=== PATIENT | female | born 1945 | race Caucasian/White ===

== ENCOUNTER → 2019-04-05 11:12 | Outpatient (CLI) | payer OTHER, SELFPAY ==
--- NOTE | ~2019-04-05 | MM_ITS ---
EXAMINATION: MM screening oswald BI w schuyler HISTORY: Screening mammogram TECHNIQUE: Craniocaudal and mediolateral oblique 3-D tomosynthesis images were obtained and synthetic 2-D images were generated. CAD analysis was submitted and interpreted. COMPARISON: Comparison to multiple prior studies sequentially, with oldest reviewed study dated 12/12. BREAST PARENCHYMAL COMPOSITION: Breast composed of scattered areas of fibroglandular density FINDINGS: There is no evidence of suspicious mass, calcification, or architectural distortion to sugg est malignancy in either breast. There has been no suspicious interval change. IMPRESSION: 1. No mammographic evidence of malignancy. 2. Recommend routine screening mammography in one year. BI-RADS Category 1: Negative Reviewed, dictated and finalized at location A. IFF DETECTIVE
== END ==
PROVIDERS: PCP Family Medicine; Visit Provider Obstetrics & Gynecology Gynecology
DX: Z12.31 Encounter for screening mammogram for malignant neoplasm of breast (principal)
CPT/HCPCS: 77063; 77067

== ENCOUNTER → 2020-05-18 10:42 | Outpatient (CLI) | payer OTHER, SELFPAY ==
--- NOTE | ~2020-05-18 | US_ITS ---
EXAMINATION: US soft tissue head and neck DATE: 05/18/2020 11:02 INDICATION: Localized swelling, mass and lump at the right lateral neck. TECHNIQUE: Multiple grayscale and Doppler ultrasound images of the region of concern at the lateral r ight neck were obtained. COMPARISON: None FINDINGS: Unremarkable appearance to the subcutaneous fat, underlying musculature and visualized inferior right parotid gland at the region of concern. Also seen are a few normal-sized right jugular chain lymph n odes. No pathologically enlarged lymphadenopathy, abnormal masses or fluid collections identified. IMPRESSION: 1. Unremarkable ultrasound of the lateral right neck with no correlate identified for the reported lo calized swelling, mass or lump. Reviewed, dictated and finalized at location B. IMPRESSION: 1. Unremarkable ultrasound of the lateral right neck with no correlate identifi ed for the reported localized swelling, mass or lump.
== END ==
PROVIDERS: PCP Physician Assistant; Visit Provider Physician Assistant
DX: R22.1 Localized swelling, mass and lump, neck (principal)
CPT/HCPCS: 76536

== ENCOUNTER 2020-12-04 02:28 | Day surgery (SDC) | payer OTHER, SELFPAY ==
[2020-11-21 08:55] VITALS: BMI 34.7
[2020-12-04 08:14] VITALS: BP 151/85; PULSE 92; RESP 18; TEMP 37.2; O2SAT 96
--- NOTE | 2020-12-04 08:29 | WPDGICN ---
Assessment and Plan Assessment and plan (1) Family history of colonic polyps: Code(s): Z83.71 - Family history of colonic polyps Status: Acute Assessment and Plan: Patient's daughter has had colon polyps. For this reason surveillance colonoscopy is recommended every 5-7 years. GI Consult Note Consult date/time: 12/04/20 08:29 HPI: Yareli Tripp is a 75 year old female Presents for screening colonoscopy. Patient reports that her current weight appetite and bowel movements are normal. She denies abdominal pain. She has had no bleeding. Family history is significant that her daughter was identified as having colon polyps. Patient presents for neoplasia screening colonoscopy today. Her last colonoscopy was 7 years ago. Review of Systems Review of Systems: All systems reviewed & are unremarkable except as noted in HPI and below PMFSH Past Medical History Medical History Anxiety Dystonia Normal colonoscopy (~2012) Surgical History Surgical History H/O: hysterectomy (~2001) Family History Family History Sibling Hypertension Family history of malignant neoplasm of ovary Father Family history of cardiovascular disease Cerebrovascular accident Hypertension Mother Family history of cardiovascular disease Family history of osteoporosis Hypertension Family history of coronary artery disease Family history of atrial fibrillation Family history of congestive heart failure Social History Social History Smoking status: Never smoker Second hand tobacco smoke exposure: No Smoking end date: 02/10/1965 Alcohol intake: current Drinks per week: 1 Living arrangements: alone Spiritual care concerns: No Meds Home Medications and Allergies Home Medications Medication Instructions Recorded Confirmed Type calcium carbonate 500 mg calcium 500 mg PO DAILY 05/10/20 11/21/20 History (1,250 mg) tablet cholecalciferol (vitamin D3) 100 100 mcg PO DAILY 05/10/20 11/21/20 History mcg (4,000 unit) capsule magnesium 30 mg tablet 30 mg PO DAILY 05/10/20 11/21/20 History mecobalamin (vitamin B12) 1,000 1,000 mcg SUBLINGUAL DAILY 05/10/20 11/21/20 History mcg disintegrating tablet,sublingual vitamin B complex 1 cap PO DAILY 05/10/20 11/21/20 History alprazolam 0.25 mg tablet 0.25 mg PO TID PRN #60 tablet 05/11/20 11/21/20 Rx Allergies Allergy/AdvReac Type Severity Reaction Status Date / Time DECONGESTANT AdvReac Unknown INCREASES Uncoded 12/04/20 08:13 HEART RATE STEROIDS AdvReac Unknown INCREASES Uncoded 12/04/20 08:13 HEART RATE Vital Signs Vital Signs - 24 hr 12/04/20 08:14 Temperature 99 F Pulse Rate 92 Respiratory Rate 18 Blood Pressure 151/85 H Pulse Oximetry 96 Exam Narrative: Physical exam reveals patient to be alert. Vital signs stable. HEENT exam is unremarkable. Patient is anicteric. Lungs are clear to auscultation and percussion. Heart is without murmur or extra sounds. Abdominal exam bowel sounds are present soft nontender with no organomegaly. Digital external rectal exam is normal.
[2020-12-04] MEDS: LACTATED RINGERS 1,000 ML 150 ML IV CONT (08:30)
--- NOTE | 2020-12-04 08:57 | WPDANESEPPF ---
Anes - Initial Pre Proc Eval Procedure: Operation Date: 12/04/20 09:00 Proposed Procedures p Screening Colonoscopy - Ryan Foss MD Date/Time: 12/04/20 08:57 Surgeon: Ryan Foss MD Pre Op Diagnosis: family hx of colon polyps Patient Data Age: 75 Gender: F Height: 1.6 m Weight: 84.7 kg Last Vital Signs Temp 99 F 12/04/20 08:14 Pulse 92 12/04/20 08:14 Resp 18 12/04/20 08:14 BP 151/85 H 12/04/20 08:14 Pulse Ox 96 12/04/20 08:14 Allergies Allergy/AdvReac Type Severity Reaction Status Date / Time DECONGESTANT AdvReac Unknown INCREASES Uncoded 12/04/20 08:13 HEART RATE STEROIDS AdvReac Unknown INCREASES Uncoded 12/04/20 08:13 HEART RATE Home Medications Medication Instructions Recorded Confirmed Type calcium carbonate 500 mg calcium 500 mg PO DAILY 05/10/20 11/21/20 History (1,250 mg) tablet cholecalciferol (vitamin D3) 100 100 mcg PO DAILY 05/10/20 11/21/20 History mcg (4,000 unit) capsule magnesium 30 mg tablet 30 mg PO DAILY 05/10/20 11/21/20 History mecobalamin (vitamin B12) 1,000 1,000 mcg SUBLINGUAL DAILY 05/10/20 11/21/20 History mcg disintegrating tablet,sublingual vitamin B complex 1 cap PO DAILY 05/10/20 11/21/20 History alprazolam 0.25 mg tablet 0.25 mg PO TID PRN #60 tablet 05/11/20 11/21/20 Rx Patient hx anesthesia problems: none Family hx anesthesia problems: none Results Review: All pre-operative results and documents have been reviewed as part of the pre-operative evaluation. [facility] Past Medical History Medical History Anxiety Dystonia Normal colonoscopy (~2012) Surgical History Surgical History H/O: hysterectomy (~2001) Family History Family History Sibling Hypertension Family history of malignant neoplasm of ovary Father Family history of cardiovascular disease Cerebrovascular accident Hypertension Mother Family history of cardiovascular disease Family history of osteoporosis Hypertension Family history of coronary artery disease Family history of atrial fibrillation Family history of congestive heart failure Social History Social History Smoking status: Never smoker Second hand tobacco smoke exposure: No Smoking end date: 02/10/1965 Alcohol intake: current Drinks per week: 1 Living arrangements: alone Spiritual care concerns: No Anes - Eval Final PreProcedure Day of Procedure 12/04/20 08:57 Patient weight: overweight Heart: regular rate and rhythm Airway: Mallampati scale class II Neurological: alert and oriented Last oral intake: >/= 8 hours ASA classification: III Emergent: no Anesthetic plan: proceed Anesthesia type and monitoring: general GIVS and standard monitoring Results Review: All pre-operative results and documents have been reviewed as part of the pre-operative evaluation. Informed Consent: The patient's anesthetic plan and its attendant risks and benefits were discussed with the patient/family/POA. Questions were solicited and answers provided to the satisfaction of the patient/family/POA.
[2020-12-04 09:26] VITALS: BP 138/87; PULSE 84; RESP 30; O2SAT 98
[2020-12-04 09:36] VITALS: BP 138/91; PULSE 86; RESP 32; O2SAT 98
[2020-12-04 09:46] VITALS: BP 158/87; PULSE 72; RESP 13; O2SAT 97
== END 2020-12-04 09:56 | disposition home or self-care (01) ==
PROVIDERS: PCP Family Medicine; Visit Provider Internal Medicine Gastroenterology
PROC: 0DJD8ZZ Inspection of Lower Intestinal Tract, Via Natural or Artificial Opening Endoscopic (ICD-10-PCS; CPT 45378; principal; 2020-12-04 09:00)
DX: Z12.11 Encounter for screening for malignant neoplasm of colon (principal); K64.8 Other hemorrhoids; K57.30 Diverticulosis of large intestine without perforation or abscess without bleeding; F41.9 Anxiety disorder, unspecified; G24.9 Dystonia, unspecified
CPT/HCPCS: 45378; J2704; J7120

== ENCOUNTER → 2021-01-11 12:23 | Outpatient (CLI) | payer OTHER, SELFPAY ==
--- NOTE | ~2021-01-11 | MM_ITS ---
EXAMINATION: MM screening oswald BI w schuyler HISTORY: Screening mammogram TECHNIQUE: Craniocaudal and mediolateral oblique 3-D tomosynthesis images were obtained and synthetic 2-D images were generated. CAD analysis was submitted and interpreted. COMPARISON: 04/01/2019, 02/23/2018 bilateral screening mammogram examinations BREAST PARENCHYMAL COMPOSITION: There are scattered areas of fibroglandular density. FINDINGS: There is no evidence of suspicious mass, calcification, or architectural distortion to sugg est malignancy in either breast. There has been no suspicious interval change. IMPRESSION: 1. No mammographic evidence of malignancy. 2. Recommend routine screening mammography in one year. BI-RADS Category 1: Negative Reviewed, dictated and finalized at location A. [employer]
== END ==
PROVIDERS: Visit Provider Obstetrics & Gynecology Gynecology
DX: Z12.31 Encounter for screening mammogram for malignant neoplasm of breast (principal)
CPT/HCPCS: 77063; 77067

== ENCOUNTER → 2021-03-27 11:04 | Outpatient (CLI) | payer OTHER, SELFPAY ==
--- NOTE | ~2021-03-27 | DEXA_ITS ---
Bone Density Report Name: ELADIA SHEPARD Age: 75 Sex: Female Ethnicity: White Date of : 1945 Indication: postmenopausal; screening for osteoporosis; parental hip fracture; height loss; hysterectomy; Referring Provider: HENNA KIM Study: Bone densitometry was performed. Exam Date: March 27, 2021 Accession number: [id number] Bone Density: Region BMD T-score Z-score Classification AP Spine (L1-L4) 1.207 1.5 3.9 Normal Femoral Neck (Left) 0.678 -1.5 0.5 Osteopenia Total Hip (Left) 0.843 -0.8 1.0 Normal Femoral Neck (Right) 0.685 -1.5 0.6 Osteopenia Total Hip (Right) 0.878 -0.5 1.3 Normal Total Hip Mean 0.861 -0.7 1.2 Normal World Health Organization criteria for BMD impression classify patients as: Normal (T-score at or above -1.0), Osteopenia (T-score between -1.0 and -2.5), or Osteoporosis (T-score at or below -2.5). 10-year Fracture Risk(1): Major Osteoporotic Fracture 17% Hip Fracture 8.5% Reported Risk Factors: [place] (), Neck BMD=0.678, BMI=33.9, parental fracture (1) FRAX(R) Version 3.08. Fracture probability calculated for an untreated patient. Fracture probability may be lower if the patient has received treatment. Previous Exams: Region Exam Age BMD T-score BMD Change BMD Change Date g/cm2 vs Baseline vs Previous AP Spine(L1-L4) 03/27/2021 75 1.207 1.5 0.003 0.029 02/11/2017 71 1.178 1.2 -0.026 -0.026 12/16/2013 68 1.205 1.4 0.000 0.000 10/03/2010 65 1.205 1.4 0.001 0.032* 09/24/2006 61 1.173 1.1 -0.031 -0.031 07/29/2003 58 1.204 1.4 Total Hip(Left) 03/27/2021 75 0.843 -0.8 -0.183 -0.051 02/11/2017 71 0.895 -0.4 -0.132 0.004 12/16/2013 68 0.890 -0.4 -0.136 -0.023 10/03/2010 65 0.913 -0.2 -0.114 -0.054* 09/24/2006 61 0.967 0.2 -0.059 -0.059 07/29/2003 58 1.027 0.7 Total Hip(Right) 03/27/2021 75 0.878 -0.5 -0.093 -0.043 02/11/2017 71 0.921 -0.2 -0.050 0.001 12/16/2013 68 0.920 -0.2 -0.051 0.024 10/03/2010 65 0.896 -0.4 -0.075 -0.069* 09/24/2006 61 0.965 0.2 -0.006 -0.006 07/29/2003 58 0.971 0.2 *Denotes significance at 95% confidence level, LSC for AP Spine = 0.022 g/cm2, LSC for Total Hip = 0.027 g/cm2 Clinical Information Provided by Patient:
== END ==
PROVIDERS: Visit Provider Obstetrics & Gynecology Gynecology
DX: Z78.0 Asymptomatic menopausal state (principal); M85.852 Other specified disorders of bone density and structure, left thigh; M85.851 Other specified disorders of bone density and structure, right thigh
CPT/HCPCS: 77080

== ENCOUNTER 2022-07-19 14:15 | Outpatient (CLI) | payer OTHER, SELFPAY ==
--- NOTE | ~2022-07-19 | XR_ITS ---
XR knee RT 3V DATE: 07/19/2022 14:52 INDICATION: Chronic knee pain TECHNIQUE: AP, lateral, sunrise views COMPARISON: None FINDINGS: Mild suprapatellar knee joint effusion. Osteopenia. Superior pole patellar enthesopathy at the quadriceps tendon insertion. There is mild enthesopathy of the patella at the patellar tendon insertion site. Moderately severe loss of medial compartment joint space height with periarticular spurring. There is mild particular spurring at the medial compartment and to a greater extent patellofemoral compartmen t. No fracture or dislocation, periosteal reaction or bone destruction, radiopaque intra-articular loose body or, calcinosis. 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
--- NOTE | ~2022-07-19 | XR_ITS ---
XR knee LT 3V DATE: 07/19/2022 14:52 INDICATION: Chronic knee pain TECHNIQUE: AP, lateral, sunrise views COMPARISON: 10/20/2018 left knee FINDINGS: Superior pole patellar enthesopathy at quadriceps tendon insertion. Prominent particular spurring of the patellofemoral joint. There is severe narrowing at the lateral c ompartment joint space. There is periarticular spurring of the lateral and medial compartments. Osteopenia No fracture or dislocation or joint effusion. No radiopaque intra-articular loose body or chondrocalc inosis is evident. No periosteal reaction or bone destruction. 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
--- NOTE | ~2022-07-19 | XR_ITS ---
XR chest 2V DATE: 07/19/2022 14:52 INDICATION: Shortness of breath TECHNIQUE: PA and lateral views COMPARISON: None FINDINGS: Normal heart size. Mild aortic calcification and tortuosity. There is an air-fluid level wi thin a moderate-sized hiatal hernia. No hilar or mediastinal enlargement. No pulmonary infiltrate or consolidation, pleural effusion or pu lmonary vascular congestion or pneumothorax. Diffuse idiopathic skeletal hyperostosis of the thoracic spine. Mild thoracic dextroscoliosis. IMPRESSION: No active cardiac pulmonary disease Moderate size hiatal hernia Reviewed, dictated and finalized at location []
--- NOTE | 2022-07-19 14:25 | ECG_ITS ---
Measurements Intervals [place] Rate: 83 P: 40 MA: 164 QRS: -20 QRSD: 86 T: 64 QT: 352 QTc: 414 Interpretive Statements SINUS RHYTHM NO PREVIOUS ECG AVAILABLE FOR COMPARISON Electronically Signed On 07-20-2022 8:57:24 CDT by Angela Hicks M.D.
== END 2022-07-19 14:16 | disposition home or self-care (01) ==
PROVIDERS: PCP Family Medicine; Visit Provider Physician Assistant
DX: R06.02 Shortness of breath (principal); M25.461 Effusion, right knee; M85.861 Other specified disorders of bone density and structure, right lower leg; M17.0 Bilateral primary osteoarthritis of knee; M85.862 Other specified disorders of bone density and structure, left lower leg; K44.9 Diaphragmatic hernia without obstruction or gangrene
CPT/HCPCS: 71046; 73562; 93005

== ENCOUNTER 2022-07-25 09:22 | Outpatient (CLI) | payer OTHER, SELFPAY ==
[2022-07-25 09:45] LABS: Hematocrit 40.6 % (37.0-47.0); Hemoglobin 12.6 g/dL (12.0-15.0); Mean Corpuscular Hemoglobin 26.7 pg (26-34); Mean Platelet Volume 10.6 fl (7.4-10.4); Platelet Count Result 247 k/mm3 (150-375); Red Blood Count 4.72 M/mm3 (4.2-5.4); Red Cell Distribution Width 15.3 % (11.5-14.5); White Blood Count 6.5 K/mm3 (4.5-10.0)
[2022-07-25 09:59] LABS: Alanine Aminotransferase 21 U/L (6-35); Albumin Level 3.9 g/dL (3.5-5.1); Alkaline Phosphatase 71 U/L (38-126); Anion Gap 4 mmol/L (8-16); Aspartate Amino Transferase 30 U/L (14-36); Bilirubin,Total 0.7 mg/dL (0.2-1.3); Blood Urea Nitrogen 15 mg/dL (7-17); Calcium 8.6 mg/dL (8.4-10.2); Carbon Dioxide 28 mmol/L (22-30); Chloride 108 mmol/L (98-107); Cholesterol 203 mg/dL (0-200); Estimated Glomerular Filt Rate > 60; Glucose 93 mg/dL (65-110); HDL Direct 63 mg/dL; Potassium 4.1 mmol/L (3.4-5.0); Sodium 140 mmol/L (137-145); Triglycerides 133 mg/dL (<150)
[2022-07-25 10:10] LABS: LDL Cholesterol Direct 106 mg/dL
[2022-07-25 10:35] LABS: Free T4 Free Thyroxine 1.35 ng/mL (0.78-2.19)
== END 2022-07-25 09:23 | disposition home or self-care (01) ==
PROVIDERS: PCP Family Medicine; Visit Provider Physician Assistant
DX: R53.83 Other fatigue (principal); Z13.1 Encounter for screening for diabetes mellitus; Z13.220 Encounter for screening for lipoid disorders
CPT/HCPCS: 36415; 80053; 80061; 84439; 84443; 85027

== ENCOUNTER 2023-09-02 14:22 | Outpatient (CLI) | payer OTHER, SELFPAY ==
[2023-09-02 14:57] LABS: Basophils Absolute Auto 0.1 K/mm3 (0.0-0.1); Basophils Percent Auto 0.6 % (0.2-1.2); Eosinophils Absolute Auto 0.5 K/mm3 (0-0.3); Eosinophils Percent Auto 6.2 % (0-4.4); Hematocrit 40.2 % (37.0-47.0); Hemoglobin 12.7 g/dL (12.0-15.0); Immature Granulocyte Absolute 0.02 K/mm3 (0.00-0.031); Immature Granulocyte Percent A 0.2 % (0-0.5); Lymphocytes Absolute Auto 1.62 K/mm3 (0.9-3.2); Lymphocytes Percent Auto 19.3 % (18.3-44.2); Mean Corpuscular HGB Conc 31.6 g/dl (32-36); Mean Corpuscular Hemoglobin 26.8 pg (26-34); Mean Corpuscular Volume 84.8 fl (80-100); Mean Platelet Volume 10.7 fl (7.4-10.4); Monocytes Absolute Auto 0.9 K/mm3 (0.1-0.6); Monocytes Percent Auto 10.3 % (2.6-8.5); Neutrophils Absolute Auto 5.3 K/mm3 (1.3-6.7); Neutrophils Percent Auto 63.4 % (45.5-73.1); Platelet Count Result 252 k/mm3 (150-375); Red Blood Count 4.74 M/mm3 (4.2-5.4); White Blood Count 8.4 K/mm3 (4.5-10.0)
--- NOTE | 2023-09-02 15:03 | ECG_ITS ---
Test Date: 2023-09-02 15:15:08 Measurements Intervals [place] Rate: 82 P: 42 W[place]: 157 QRS: 20 QRSD: 82 T: 62 QT: 360 QTc: 422 Interpretive Statements SINUS RHYTHM RSR' IN V1 OR V2, PROBABLY NORMAL VARIANT NORMAL ECG No previous ECG available for comparison Electronically Signed On 09-02-2023 15:57:55 CDT by Sanjiv Tolbert D.O.
[2023-09-02 15:10] LABS: Anion Gap 8 mmol/L (4-12); Blood Urea Nitrogen 23 mg/dL (7-17); Calcium 9.1 mg/dL (8.4-10.2); Carbon Dioxide 26 mmol/L (22-30); Chloride 102 mmol/L (98-107); Estimated Glomerular Filt Rate > 60; Glucose 111 mg/dL (65-110); Sodium 136 mmol/L (137-145)
[2023-09-02 16:05] LABS: Appearance Urine Clear (Clear); Bacteria Urine None Seen /hpf; Bilirubin Urine Negative (Negative); Blood Urine Negative (Negative); Color Urine Dark Yellow (Yellow); Glucose Urine UA Negative (Negative); Ketones Urine Trace mg/dL (Negative); Leukocyte Esterase Ur 2+ LEU/UL (Negative); Need Manual Microscopic Reviewed; Nitrate Urine Negative (Negative); Protein Urine Negative (Negative); RBC Urine 0-2 /hpf (0-2); Specific Grav Ur 1.021 (1.001-1.035); Squamous Epithelial Cell Urine Occasional /hpf (Few); Urobilinogen Urine 0.2 mg/dL (<2.0); pH Urine 5.5 (5.0-9.0)
[2023-09-02 16:08] LABS: Add Urine Microscopic? YES
== END 2023-09-02 14:23 | disposition home or self-care (01) ==
PROVIDERS: PCP Family Medicine; Visit Provider Nurse Practitioner Family
DX: R53.83 Other fatigue (principal); I10 Essential (primary) hypertension
CPT/HCPCS: 36415; 80048; 81001; 85025; 87086; 93005

== ENCOUNTER 2024-01-14 13:32 | Outpatient (CLI) | payer OTHER, SELFPAY ==
[2024-01-14 16:04] LABS: Basophils Absolute Auto 0.1 K/mm3 (0.0-0.1); Basophils Percent Auto 0.9 % (0.2-1.2); Eosinophils Absolute Auto 0.2 K/mm3 (0-0.3); Eosinophils Percent Auto 2.5 % (0-4.4); Hematocrit 43.8 % (37.0-47.0); Hemoglobin 13.8 g/dL (12.0-15.0); Immature Granulocyte Absolute 0.02 K/mm3 (0.00-0.031); Immature Granulocyte Percent A 0.3 % (0-0.5); Lymphocytes Absolute Auto 1.45 K/mm3 (0.9-3.2); Lymphocytes Percent Auto 18.9 % (18.3-44.2); Mean Corpuscular HGB Conc 31.5 g/dl (32-36); Mean Corpuscular Hemoglobin 28.4 pg (26-34); Mean Corpuscular Volume 90.1 fl (80-100); Mean Platelet Volume 10.6 fl (7.4-10.4); Monocytes Absolute Auto 0.7 K/mm3 (0.1-0.6); Monocytes Percent Auto 9.1 % (2.6-8.5); Neutrophils Absolute Auto 5.3 K/mm3 (1.3-6.7); Neutrophils Percent Auto 68.3 % (45.5-73.1); Platelet Count Result 219 k/mm3 (150-375); Red Blood Count 4.86 M/mm3 (4.2-5.4); Red Cell Distribution Width 14.7 % (11.5-14.5); White Blood Count 7.7 K/mm3 (4.5-10.0)
[2024-01-14 16:07] LABS: Add Urine Microscopic? NO; Appearance Urine Clear (Clear); Bilirubin Urine Negative (Negative); Blood Urine Negative (Negative); Color Urine Yellow (Yellow); Glucose Urine UA Negative (Negative); Ketones Urine Negative (Negative); Leukocyte Esterase Ur Negative LEU/UL (Negative); Nitrate Urine Negative (Negative); Protein Urine Negative (Negative); Specific Grav Ur 1.018 (1.001-1.035); Urobilinogen Urine 0.2 mg/dL (<2.0); pH Urine 6.5 (5.0-9.0)
[2024-01-14 16:16] LABS: Albumin Level 4.3 g/dL (3.5-5.1); Anion Gap 2 mmol/L (4-12); Blood Urea Nitrogen 21 mg/dL (7-17); Calcium 9.2 mg/dL (8.4-10.2); Carbon Dioxide 29 mmol/L (22-30); Chloride 106 mmol/L (98-107); Estimated Glomerular Filt Rate > 60; Glucose 91 mg/dL (65-110); Potassium 4.4 mmol/L (3.4-5.0); Sodium 137 mmol/L (137-145)
[2024-01-14 16:19] LABS: Urine Cotinine NEGATIVE
[2024-01-14 16:22] LABS: INR 0.9; Prothrombin Time 12.9 Seconds (11.1-14.7)
[2024-01-14 16:23] LABS: Partial Thromboplastin Time 24.6 Seconds (22.3-36.8)
[2024-01-14 17:29] LABS: MRSA (PCR) NOT DETECTED (NOT DETECTE)
[2024-01-14 23:31] LABS: Hemoglobin A1C 5.8 % (<5.7)
== END 2024-01-14 13:33 | disposition home or self-care (01) ==
LOC: ANHSURGERY 13:37
PROVIDERS: PCP Family Medicine; Visit Provider Orthopaedic Surgery
DX: M17.12 Unilateral primary osteoarthritis, left knee (principal); Z01.818 Encounter for other preprocedural examination
CPT/HCPCS: 80048; 80307; 81003; 82040; 83036; 85025; 85610; 85730; 87641

== ENCOUNTER 2024-01-15 11:46 | Emergency (ER) | payer OTHER, SELFPAY ==
[2024-01-15] VITALS (15 sets, daily range): BP systolic 164–206; BP diastolic 83–93; PULSE 75–87; RESP 12–20; TEMP 36.5; O2SAT 95–100
--- NOTE | 2024-01-15 13:20 | ED_ITS ---
HPI - Recheck/Abnormal Lab/Rx General Chief Complaint: Recheck/Abnormal Lab/Rx Stated Complaint: high BP Time Seen by Provider: 01/15/24 13:21 Focused HPI: Patient is a 78 y/o female who presents to the ED with c/o HTN. Patient reports she had a preop appointment yesterday for L knee replacement surgery scheduled on 01/[address] Jacob. BP was noted to be elevated at the appointment. Elevated to 230 systolic. Primary called her today to come to the ED. Patient reports she has not checked her BP in over 1 month. States she was on a diuretic years ago for HTN, but was taken off this after losing weight. Patient is currently on amoxicillin for sinus infection. She has also been taking Pseudafed for congestion. Denies dizziness, lightheadedness, vision changes, headache, CP, SOB. GENERAL: Elderly, mildly anxious appearing, obese with BMI of 36.3, and in no acute distress. HEAD: Normocephalic, atraumatic. CHEST: Clear to auscultation. ?No respiratory distress. HEART: Regular rate and rhythm.? NEURO: ?Alert and oriented x3. Patient screened in triage and initial orders placed.? ?Additional care and disposition to be based upon?diagnostic testing and treatment. Source: patient Mode of arrival: ambulatory Limitations: no limitations Related Data Home Medications Medication Instructions Recorded Confirmed mecobalamin (vitamin B12) 1,000 1,000 mcg sublingual DAILY 05/10/20 01/14/24 mcg disintegrating tablet,sublingual vitamin B complex 1 cap PO DAILY 05/10/20 01/14/24 acetaminophen 650 mg 1,300 mg PO Q12H PRN Pain 01/14/24 01/14/24 tablet,extended release amoxicillin 875 mg tablet 875 mg PO Q12H 01/14/24 01/14/24 calcium 500 mg 2 tablet PO BID 01/14/24 01/14/24 (carb,gluconate)-magnesium 250 mg (gluc,oxide) tablet (Calcium Magnesium) cholecalciferol (vitamin D3) 50 50 mcg PO DAILY 01/14/24 01/14/24 mcg (2,000 unit) capsule bdmgmaashj-yvikqrooleeskyu-qranwipcosmgansu-acetaminophen 2 cap PO HS PRN Insomnia 01/14/24 01/14/24 capsule ibuprofen 200 mg capsule 400 mg PO Q6H PRN Pain 01/14/24 01/14/24 loperamide 2 mg capsule 2 mg PO Q6H PRN Pain 01/14/24 01/14/24 pseudoephedrine HCl 60 mg tablet 60 mg PO Q4-6H PRN Sinus Symptoms 01/14/24 01/14/24 Allergies Allergy/AdvReac Type Severity Reaction Status Date / Time DECONGESTANT AdvReac Unknown INCREASES Uncoded 01/15/24 15:41 HEART RATE STEROIDS AdvReac Unknown INCREASES Uncoded 01/15/24 15:41 HEART RATE PMFSH Past Medical History Medical History Anxiety Diarrhea Dystonia Encounter for immunization Fatigue History of Mohs micrographic surgery for skin cancer HTN (hypertension) Knee pain, bilateral Left knee DJD Normal colonoscopy (~2012) Other fatigue Right knee DJD Surgical History Surgical History H/O: hysterectomy (~2001) Family History Family History Sibling Hypertension Family history of malignant neoplasm of ovary Father Family history of cardiovascular disease Cerebrovascular accident Hypertension Mother Family history of cardiovascular disease Family history of osteoporosis Hypertension Family history of coronary artery disease Family history of atrial fibrillation Family history of congestive heart failure Social History Social History Smoking status: Never smoker Second hand tobacco smoke exposure: No Alcohol intake: current Drinks per week: 1 Substance use: never Substance use type: does not use Lack of Transportation: No Lack of Food: Never True Current Housing: I Have Housing Concerned About Future Housing: No Difficulty Paying Gas/Electric Bills: No Difficulty Paying for Meds: No Currently Unemployed: No Education: Bachelor's Degree Difficulty w/ Childcare or Family Care: No Living arrangements: alone Occupation/Education: retired Gender identity (if verbalized by the patient): Female Spiritual care concerns: No Course Vital Signs Vital signs: Vital Signs Temperature 97.7 F 01/15/24 11:54 Pulse Rate 87 01/15/24 11:54 Respiratory Rate 18 01/15/24 11:54 Blood Pressure 206/89 H 01/15/24 11:54 Pulse Oximetry 99 01/15/24 11:54 Temperature 97.7 F 01/15/24 11:54 Pulse Rate 78 01/15/24 19:14 Respiratory Rate 20 01/15/24 19:14 Blood Pressure 189/85 H 01/15/24 19:14 Pulse Oximetry 98 01/15/24 19:14 Oxygen Delivery Room Air 01/15/24 15:42 MDM - Recheck/Abnormal Lab/Rx MDM Narrative Medical decision making narrative: MSE by RONDA in triage. Patient had blood work and UA performed yesterday. Lab Data Labs: Lab Results 01/15/24 Range/Units 17:49 Troponin I < 0.012 (0.000-0.034) ng/mL Discharge Plan Discharge Clinical Impression: HTN (hypertension) Qualifiers: Hypertension type: unspecified Qualified Code(s): I10 - Essential (primary) hypertension Patient Disposition: Home, Self-Care Condition: Stable Instructions: Antibiotic Form, Hypertension (ED) Additional Instructions: You were seen in the emergency department. Your troponin was negative. Your EKG was not concerning for ischemia. Review of your blood work yesterday was not concerning for liver or kidney injury. Your exam is reassuring. I recommend a course of amlodipine and following up with your primary care doctor. If you develop chest pain, shortness of breath, weakness/numbness, change/ loss of vision/hearing, or if you have other emergent concerns for life, limb, or eyesight, return to the emergency department. Patient Language: Croatian Prescriptions: New amlodipine 5 mg tablet 5 mg PO DAILY Qty: 30 0RF No Action mecobalamin (vitamin B12) 1,000 mcg tablet,disintegrating 1,000 mcg sublingual DAILY Rx Instructions: place tablet under tongue and allow to dissolve for at least30 secs before swallowing vitamin B complex Capsule 1 cap PO DAILY ibuprofen 200 mg Capsule 400 mg PO Q6H PRN (Reason: Pain) cholecalciferol (vitamin D3) 50 mcg (2,000 unit) Capsule 50 mcg PO DAILY Calcium Magnesium 500 mg calcium- 250 mg Tablet 2 tablet PO BID acetaminophen [Tylenol Arthritis] 650 mg Tablet Extended Release 1,300 mg PO Q12H PRN (Reason: Pain) amoxicillin 875 mg Tablet 875 mg PO Q12H loperamide [Imodium] 2 mg Capsule 2 mg PO Q6H PRN (Reason: Pain) NyQuil Liquicaps Capsule 2 cap PO HS PRN (Reason: Insomnia) pseudoephedrine HCl [Sudafed] 60 mg Tablet 60 mg PO Q4-6H PRN (Reason: Sinus Symptoms) Rx Instructions: DNExceed 4 doses/24h alprazolam [Xanax] 0.25 mg tablet 0.25 mg PO TID PRN (Reason: anxiety) Qty: 60 0RF chlorhexidine gluconate [Hibiclens] 4 % liquid 1 applic topical ONCE Qty: 237 0RF Rx Instructions: Cleanse operative extremity, in shower, every day for 1 week prior to surgical procedure. Follow-up/Referrals: Seema Waters MD [Primary Care Provider] - 1 Week Time of Disposition: 18:30
--- NOTE | 2024-01-15 13:25 | ECG_ITS ---
Test Date: 2024-01-15 13:43:54 Measurements Intervals [place] Rate: 72 P: 32 [place]: 165 QRS: -17 QRSD: 78 T: 51 QT: 380 QTc: 417 Interpretive Statements SINUS RHYTHM Compared to ECG 09/02/2023 15:15:08 No significant changes Electronically Signed On 01-15-2024 13:59:04 PAIN MANAGEMENT PHYSICIAN by Toy Villatoro M.D.
[2024-01-15] MEDS: amLODIPine BESYLATE 5 MG TABLET PO (17:34)
[2024-01-15 18:22] LABS: Troponin I < 0.012 ng/mL (0.000-0.034)
--- NOTE | 2024-01-15 18:29 | ED_ITS ---
HPI - Recheck/Abnormal Lab/Rx General Chief Complaint: Recheck/Abnormal Lab/Rx Stated Complaint: high BP Time Seen by Provider: 01/15/24 13:21 Source: patient Mode of arrival: ambulatory Limitations: no limitations History of Present Illness HPI narrative: This is a 78-year-old female, with history of anxiety, who presents to the emergency department and recommendation for primary care doctor for elevated blood pressure. The patient states she was seen yesterday for a preop appointment preparation for knee surgery, when she was found to be hypertensive to the 180s. The patient denies any symptoms, including headache, shortness of breath, chest pain, loss of consciousness, weakness / numbness or change in urination. She has no other complaints at this time. Related Data Home Medications Medication Instructions Recorded Confirmed mecobalamin (vitamin B12) 1,000 1,000 mcg sublingual DAILY 05/10/20 01/14/24 mcg disintegrating tablet,sublingual vitamin B complex 1 cap PO DAILY 05/10/20 01/14/24 acetaminophen 650 mg 1,300 mg PO Q12H PRN Pain 01/14/24 01/14/24 tablet,extended release amoxicillin 875 mg tablet 875 mg PO Q12H 01/14/24 01/14/24 calcium 500 mg 2 tablet PO BID 01/14/24 01/14/24 (carb,gluconate)-magnesium 250 mg (gluc,oxide) tablet (Calcium Magnesium) cholecalciferol (vitamin D3) 50 50 mcg PO DAILY 01/14/24 01/14/24 mcg (2,000 unit) capsule wpvvaxpljb-hhvzywgfsiziugz-hcakyhkdswpgasib-acetaminophen 2 cap PO HS PRN Insomnia 01/14/24 01/14/24 capsule ibuprofen 200 mg capsule 400 mg PO Q6H PRN Pain 01/14/24 01/14/24 loperamide 2 mg capsule 2 mg PO Q6H PRN Pain 01/14/24 01/14/24 pseudoephedrine HCl 60 mg tablet 60 mg PO Q4-6H PRN Sinus Symptoms 01/14/24 01/14/24 Allergies Allergy/AdvReac Type Severity Reaction Status Date / Time DECONGESTANT AdvReac Unknown INCREASES Uncoded 01/15/24 15:41 HEART RATE STEROIDS AdvReac Unknown INCREASES Uncoded 01/15/24 15:41 HEART RATE Review of Systems Review of Systems: All systems reviewed & are unremarkable except as noted in HPI and below PMFSH Past Medical History Medical History Anxiety Diarrhea Dystonia Encounter for immunization Fatigue History of Mohs micrographic surgery for skin cancer HTN (hypertension) Knee pain, bilateral Left knee DJD Normal colonoscopy (~2012) Other fatigue Right knee DJD Surgical History Surgical History H/O: hysterectomy (~2001) Family History Family History Sibling Hypertension Family history of malignant neoplasm of ovary Father Family history of cardiovascular disease Cerebrovascular accident Hypertension Mother Family history of cardiovascular disease Family history of osteoporosis Hypertension Family history of coronary artery disease Family history of atrial fibrillation Family history of congestive heart failure Social History Social History Smoking status: Never smoker Second hand tobacco smoke exposure: No Alcohol intake: current Drinks per week: 1 Substance use: never Substance use type: does not use Lack of Transportation: No Lack of Food: Never True Current Housing: I Have Housing Concerned About Future Housing: No Difficulty Paying Gas/Electric Bills: No Difficulty Paying for Meds: No Currently Unemployed: No Education: Bachelor's Degree Difficulty w/ Childcare or Family Care: No Living arrangements: alone Occupation/Education: retired Gender identity (if verbalized by the patient): Female Spiritual care concerns: No Exam Narrative: GENERAL: Well-developed, well-nourished, and in no acute distress. HEAD: Normocephalic, atraumatic. EYES: PERRLA and EOMI. CHEST: Clear to auscultation. No respiratory distress. No wheezes rales or rhonchi HEART: Regular rate and rhythm. No murmur heard. Normal peripheral pulses. ABDOMEN: Soft, nontender, nondistended, normal active bowel sounds. EXTREMITIES: Normal range of motion. No edema. SKIN: Warm, dry, no rash. NEURO: Alert and oriented x3. Strength 5/5 in all extremities, sensation intact bilaterally, no noted ataxia, cranial nerves 2 through 12 intact PSYCH: Normal mood and affect. Course Course Emergency Course: 18:30 - I reviewed the patient's labs obtained yesterday at her preop appointment. CBC is unremarkable. Chemistries all within normal limits. EKG here is not concerning for ischemia. A troponin was negative. The patient's blood pressure spontaneously improved to the 180s over 80s. Will start low-dose amlodipine and recommend primary care follow-up. I discussed the findings and recommendations with The patient. Discussed return and emergency precautions including signs/symptoms of ACS, respiratory distress and stroke. The patient voiced understanding and agreement with the plan. All questions answered to her satisfaction. Vital Signs Vital signs: Vital Signs Temperature 97.7 F 01/15/24 11:54 Pulse Rate 87 01/15/24 11:54 Respiratory Rate 18 01/15/24 11:54 Blood Pressure 206/89 H 01/15/24 11:54 Pulse Oximetry 99 01/15/24 11:54 Temperature 97.7 F 01/15/24 11:54 Pulse Rate 78 01/15/24 19:14 Respiratory Rate 20 01/15/24 19:14 Blood Pressure 189/85 H 01/15/24 19:14 Pulse Oximetry 98 01/15/24 19:14 Oxygen Delivery Room Air 01/15/24 15:42 MDM - Recheck/Abnormal Lab/Rx MDM Narrative Medical decision making narrative: plan: EKG, troponin, review of recent labs, antihypertensives, reassess Differential Diagnosis Differential diagnosis: Likely other ( hypertension, metabolic abnormality, ACS, other) Lab Data Labs: Lab Results 01/15/24 Range/Units 17:49 Troponin I < 0.012 (0.000-0.034) ng/mL ECG Data EKG #1: Attestation: I personally reviewed and interpreted this ECG as follows: ECG completion date: 01/15/24 ECG completion time: 13:43 Prior ECG tracings: available for review Interpretation: sinus rhythm, rate 72, borderline left axis, no ST segment elevations or T-wave inversions concerning for ischemia, normal intervals with QTC of 417. Compared to EKG done in August 2023, there are no significant changes. Discharge Plan Discharge Clinical Impression: HTN (hypertension) Qualifiers: Hypertension type: unspecified Qualified Code(s): I10 - Essential (primary) hypertension Patient Disposition: Home, Self-Care Condition: Stable Instructions: Antibiotic Form, Hypertension (ED) Additional Instructions: You were seen in the emergency department. Your troponin was negative. Your EKG was not concerning for ischemia. Review of your blood work yesterday was not concerning for liver or kidney injury. Your exam is reassuring. I recommend a course of amlodipine and following up with your primary care doctor. If you d evelop chest pain, shortness of breath, weakness/numbness, change/ loss of vision/hearing, or if you have other emergent concerns for life, limb, or eyesight, return to the emergency department. Patient Language: Swedish Prescriptions: New amlodipine 5 mg tablet 5 mg PO DAILY Qty: 30 0RF No Action mecobalamin (vitamin B12) 1,000 mcg tablet,disintegrating 1,000 mcg sublingual DAILY Rx Instructions: place tablet under tongue and allow to dissolve for at least30 secs before swallowing vitamin B complex Capsule 1 cap PO DAILY ibuprofen 200 mg Capsule 400 mg PO Q6H PRN (Reason: Pain) cholecalciferol (vitamin D3) 50 mcg (2,000 unit) Capsule 50 mcg PO DAILY Calcium Magnesium 500 mg calcium- 250 mg Tablet 2 tablet PO BID acetaminophen [Tylenol Arthritis] 650 mg Tablet Extended Release 1,300 mg PO Q12H PRN (Reason: Pain) amoxicillin 875 mg Tablet 875 mg PO Q12H loperamide [Imodium] 2 mg Capsule 2 mg PO Q6H PRN (Reason: Pain) NyQuil Liquicaps Capsule 2 cap PO HS PRN (Reason: Insomnia) pseudoephedrine HCl [Sudafed] 60 mg Tablet 60 mg PO Q4-6H PRN (Reason: Sinus Symptoms) Rx Instructions: DNExceed 4 doses/24h alprazolam [Xanax] 0.25 mg tablet 0.25 mg PO TID PRN (Reason: anxiety) Qty: 60 0RF chlorhexidine gluconate [Hibiclens] 4 % liquid 1 applic topical ONCE Qty: 237 0RF Rx Instructions: Cleanse operative extremity, in shower, every day for 1 week prior to surgical procedure. Follow-up/Referrals: Seema Waters MD [Primary Care Provider] - 1 Week Time of Disposition: 18:30
== END 2024-01-15 19:16 | disposition home or self-care (01) ==
PROVIDERS: Emergency Provider Preventive Medicine Aerospace Medicine; PCP Family Medicine
DX: I10 Essential (primary) hypertension (principal); M17.0 Bilateral primary osteoarthritis of knee; Z85.828 Personal history of other malignant neoplasm of skin; Z90.710 Acquired absence of both cervix and uterus
CPT/HCPCS: 36415; 84484; 93005; 99284; A9270

== ENCOUNTER 2024-01-28 01:35 | Day surgery (SDC) | payer OTHER, SELFPAY ==
[2024-01-14 14:03] VITALS: BMI 35.2
--- NOTE | 2024-01-14 15:01 | PC.NURSE ---
Report to the Outpatient Waiting Room, entrance under the green pavilion located off [facility], at time __6:00AM on date ___01/28/24____. Planned Procedure Time: __7:30AM .? Time changes happen often and if your time is changed the preop area will call you the afternoon before. - You and your visitor will be asked to self-screen and do not enter if you have any COVID symptoms. Please call surgeon if you need to reschedule. - A mask is optional within the hospital at this time. Patients may have clear liquids (water, carbonated beverages, clear teas, apple juice) until 3 hours prior to surgery with a maximum of 20 ounces. - No food from midnight until time of surgery and no smoking. This includes no chewing gum, candy or mints. Take only the following medications with a SIP of water on the morning of surgery: __ALPRAZOLAM NEEDED DO NOT STOP ANY OF YOUR OTHER PRESCRIPTION MEDICATIONS PRIOR TO SURGERY EXCEPT THE FOLLOWING Medications to discontinue per physician ____HOLD IBUPROFEN 7 DAYS PRE-OP PER DR BANKS- LAST DOSE 01/20/24. HOLD ALL VITAMINS/SUPPLEMENTS 3 DAYS PRE-OP PER ANESTHESIA- LAST DOSE 01/24/24 Please no make-up, nail vincentian, hairspray, perfume, deodorant, or body powder the day of surgery.? No jewelry (including any body piercings) or valuables the day of surgery, leave them at home.? Please take a shower or bath the night before, or the morning of, surgery with an antibacterial soap.? Wear comfortable, loose fitting clothing.? - Jewelry must be removed prior to entering the operating room.? Rings and piercings that are not removed may be cut off. - The hospital will not accept responsibility for valuables.? - Please leave all valuables, including medications, at home the day of surgery. If you are going home after surgery, a licensed charter and tour bus driver must drive you home.? - NO public transportation without another adult if you receive anesthesia. - We recommend that an adult stay with you for 24 hours following discharge. - We also recommend that you do not drive, make important decision, drink alcoholic beverages, or take any drugs that were not prescribed by your health care provider for at least 24 hours after your discharge time. Follow any additional instructions given to you from your surgeon. Telephone instructions given to ____PATIENT and asked if any additional questions and then verbalized understanding. Patient advised to call surgeon office or pre surgery nurse liaison [phone] if any additional questions.
[2024-01-14 15:10] VITALS: BP 212/101; PULSE 81; RESP 16; TEMP 36.5; O2SAT 98
[2024-01-14 15:20] VITALS: BP 217/92
[2024-01-28] VITALS (14 sets, daily range): BP systolic 128–165; BP diastolic 69–119; PULSE 83–94; RESP 10–20; TEMP 36.2–37.1; O2SAT 95–100
--- NOTE | ~2024-01-28 | XR_ITS ---
EXAMINATION: [id number] DATE: 01/28/2024 11:27 CASING SEWER INDICATION: Left knee arthroplasty TECHNIQUE: 2 views left knee FINDINGS: There is a left total knee arthroplasty in expected position. Subcutaneous gas with fluid and air in the joint and overlying skin ronald are consistent with recent surgery. No evidence of pe riprosthetic fracture. IMPRESSION: 1. Recent left total knee arthroplasty. Reviewed, dictated and finalized at location B. NG SEWER
[2024-01-28] MEDS: ACETAMINOPHEN 500 MG TABLET 1000 MG PO (06:25)
[2024-01-28] MEDS: LACTATED RINGERS 1,000 ML 30 ML IV CONT ×2 (06:30→11:06)
[2024-01-28] MEDS: TRANEXAMIC ACID 1,000MG/ISO100 1,000 MG/100 ML BAG 200 MG IVPB (06:30)
--- NOTE | 2024-01-28 07:07 | WPDANESEPPF ---
Anes - Initial Pre Proc Eval Procedure: Operation Date: 01/28/24 07:30 Proposed Procedures p Left Total Knee Arthroplasty - Raj Jacob MD Date/Time: 01/28/24 07:07 Surgeon: Raj Jacob MD Pre Op Diagnosis: left knee OA Patient Data Age: 78 Gender: F Height: 1.59 m Weight: 89.6 kg Last Vital Signs Temp 36.2 C L 01/28/24 05:57 Pulse 90 01/28/24 05:57 Resp 18 01/28/24 05:57 BP 160/78 H 01/28/24 05:57 Pulse Ox 99 01/28/24 05:57 O2 Del Method Room Air 01/28/24 05:57 Allergies Allergy/AdvReac Type Severity Reaction Status Date / Time adhesive tape AdvReac Intermediate Redness of Verified 01/28/24 06:03 Skin DECONGESTANT AdvReac Unknown INCREASES Uncoded 01/28/24 06:03 HEART RATE STEROIDS AdvReac Unknown INCREASES Uncoded 01/28/24 06:03 HEART RATE Home Medications ?Medication ?Instructions ?Recorded ?Confirmed ?Type mecobalamin (vitamin B12) 1,000 1,000 mcg sublingual DAILY 05/10/20 01/28/24 History mcg disintegrating tablet,sublingual vitamin B complex 1 cap PO DAILY 05/10/20 01/28/24 History alprazolam 0.25 mg tablet (Xanax) 0.25 mg PO TID PRN anxiety #60 tabs 01/12/24 01/23/24 Rx acetaminophen 650 mg 1,300 mg PO Q12H PRN Pain 01/14/24 01/28/24 History tablet,extended release calcium 500 mg 2 tablet PO BID 01/14/24 01/28/24 History (carb,gluconate)-magnesium 250 mg (gluc,oxide) tablet (Calcium Magnesium) cholecalciferol (vitamin D3) 50 50 mcg PO DAILY 01/14/24 01/28/24 History mcg (2,000 unit) capsule vlrolhondw-zzkjpvrgbvmaqgs-tmtlzyhtrhmsojnt-acetaminophen 2 cap PO HS PRN Insomnia 01/14/24 01/23/24 History capsule ibuprofen 200 mg capsule 400 mg PO Q6H PRN Pain 01/14/24 01/28/24 History loperamide 2 mg capsule 2 mg PO Q6H PRN Pain 01/14/24 01/23/24 History pseudoephedrine HCl 60 mg tablet 60 mg PO Q4-6H PRN Sinus Symptoms 01/14/24 01/23/24 History amlodipine 5 mg tablet 5 mg PO DAILY #30 tabs 01/15/24 01/28/24 Rx losartan 25 mg tablet 25 mg PO DAILY #30 tabs 01/23/24 01/28/24 Rx Patient hx anesthesia problems: none Family hx anesthesia problems: none Results Review: All pre-operative results and documents have been reviewed as part of the pre-operative evaluation. [facility] Past Medical History Medical History History of Mohs micrographic surgery for skin cancer HTN (hypertension) Other fatigue Left knee DJD Right knee DJD Knee pain, bilateral Diarrhea Fatigue Encounter for immunization Dystonia Anxiety Normal colonoscopy (~2012) Surgical History Surgical History H/O: hysterectomy (~2001) Family History Family History Sibling Hypertension Family history of malignant neoplasm of ovary Father Family history of cardiovascular disease Cerebrovascular accident Hypertension Mother Family history of cardiovascular disease Family history of osteoporosis Hypertension Family history of coronary artery disease Family history of atrial fibrillation Family history of congestive heart failure Social History Social History Smoking status: Never smoker Second hand tobacco smoke exposure: No Alcohol intake: current Drinks per week: 1 Substance use: never Substance use type: does not use Lack of Transportation: No Lack of Food: Never True Current Housing: I Have Housing Concerned About Future Housing: No Difficulty Paying Gas/Electric Bills: No Difficulty Paying for Meds: No Currently Unemployed: No Education: Bachelor's Degree Difficulty w/ Childcare or Family Care: No Living arrangements: alone Occupation/Education: retired Gender identity (if verbalized by the patient): Female Spiritual care concerns: No Anes - Eval Final PreProcedure Day of Procedure 01/28/24 07:07 Patient weight: obese Heart: regular rate and rhythm Lungs: clear to auscultation Airway: Mallampati scale class II Neurological: alert and oriented Last oral intake: >/= 8 hours ASA classification: III Emergent: no Anesthetic plan: proceed Anesthesia type and monitoring: general LMA and standard monitoring Results Review: All pre-operative results and documents have been reviewed as part of the pre-operative evaluation. Informed Consent: The patient's anesthetic plan and its attendant risks and benefits were discussed with the patient/family/POA. Questions were solicited and answers provided to the satisfaction of the patient/family/POA.
--- NOTE | 2024-01-28 07:21 | WPDHPUPDATE1 ---
History and Physical Update Update Date/Time: 01/28/24 07:21 History and Physical has been reviewed, including an updated exam of the patient. There are NO changes in the patient's condition. Risks, benefits, and alternatives have been discussed and questions answered. Patient agrees to proceed with procedure.
[2024-01-28] MEDS: SODIUM CHLORIDE 0.9% IV 37.7 ML, MORPHINE SULFATE INJ (*CRX) 2 MG, ROPivacaine HCL 1% 2... INFILTRATE (07:35)
[2024-01-28] MEDS: ceFAZolin 2 GM/D5W 50 ML 2 GM/50 ML BAG IVPB ×3 (07:35→23:48)
[2024-01-28] MEDS: GENTAMICIN BONE CEMENT REFOBACIN 1 EACH TOPICAL (08:56)
[2024-01-28] MEDS: TRANEXAMIC ACID 1,000 MG/10 ML AMPUL 1000 MG IV PUSH (10:07)
[2024-01-28] MEDS: ONDANSETRON INJ 4 MG/2 ML VIAL IV PUSH ×2 (11:24→13:29)
[2024-01-28] MEDS: fentaNYL CITRATE INJ (*CRX) 100 MCG/2 ML VIAL 25 MCG IV PUSH ×4 (11:35→11:46)
--- NOTE | 2024-01-28 11:41 | WPDANESPNB ---
Anes - Peripheral Nerve Block Date/Time: 01/28/24 11:41 I have discussed with the patient/family/POA the placement of a peripheral nerve block for post-operative pain management, including associated risks, benefits, complications, and side effects. Alternative methods of post-operative analgesia were detailed. Questions were solicited and answers provided to the satisfaction of the patient/family/POA. Time-Out: A pre-procedural Time-Out was completed immediately before starting the procedure and confirmed: Patient Identification, Site, Procedure, Patient Position and the Availability of Requisite Equipment. Clinical Indications: Acute post-operative pain management requested by the operative surgeon. Nerve Block Insertion Note Anes-nerve block: adductor canal left Patient position: supine Skin prep: chlorhexidine Needle: 22 gauge, stimulating, insulated echogenic needle. Needle length: 80 mm Technique: ultrasound Technique comment: done in pacu Injectate: bupivacaine 0.5% with epi 5 mcg/ml (30ml no epi) Observations: tolerated well Complications: none Procedure start time:: 1228 Procedure end time:: 1235
--- NOTE | 2024-01-28 11:56 | W.PM.PROC2 ---
Procedure Note - Detailed Date of Procedure 01/28/24 Pre-op Diagnosis left knee OA Post-op Diagnosis Same Procedure Performed L TKA Surgeon Raj Jacob MD Anesthesia General Description of Procedure THE LEFT KNEE WAS PREPPED AND DRAPED IN THE STERILE FASHION. A MIDLINE SKIN INCISION WAS MADE. A MEDIAL PARAPATELLAR ARTHROTOMY WAS MADE. THE PATELLA WAS EVERTED. THERE WAS TRICOMPARTMENT DJD. THERE WAS MINIMAL PATELLA DJD. AN INTRAMEDULLARY MIKE WAS PLACED IN THE FEMUR. A DISTAL FEMORAL CUT WAS MADE IN 5 DEGREES OF VALGUS REMOVING APPROXIMATELY 8 MM OF BONE FROM THE DISTAL FEMUR. THE FEMUR WAS SIZED TO 2. A 2 FEMORAL CUTTING BLOCK WAS PLACED IN 3 DEGREES OF EXTERNAL ROTATION AND IN ALIGNMENT WITH KASHMIR'S LINE AND THE TRANSEPICONDYLAR AXIS. ANTERIOR POSTERIOR AND CHAMFER CUTS WERE MADE. THE CUTS WERE EXCELLENT. NEXT AN INTRAMEDULLARY CUTTING GUIDE WAS PLACED IN THE TIBIA. A TRANS TIBIAL CUT WAS MADE ALONG THE LONG AXIS OF THE TIBIA. APPROXIMATELY 8 MM OF BONE WAS REMOVED FROM THE HIGH SIDE OF THE TIBIA. POSTERIOR FEMORAL OSTEOPHYTES WERE REMOVED FROM THE FEMORAL CONDYLES. A 3 TIBIAL TRIAL WAS PLACED IN ALIGNMENT WITH THE 1/3 MEDIAL ASPECT OF THE TIBIAL TUBERCLE. THEN A 2 FEMORAL TRIAL PS COMPONENT WAS PLACED. A BOX CUT WAS MADE. A PS FEMORAL TRIAL WAS PLACED. BOTH HAD EXCELLENT FITS. EVENTUALLY A 19 MM TS POLYETHYLENE TRIAL COMPONENT WAS PLACED. THE KNEE WAS TAKEN THROUGH A RANGE OF MOTION. THE KNEE CAME OUT TO FULL EXTENSION. THERE WAS NO ABNORMAL TILT TO THE PATELLA. THERE WAS GOOD A/P AND VARUS/VALGUS STABILITY. THERE WAS NO EXCESSIVE ROLL BACK WITH FLEXION. THE TRIAL COMPONENTS WERE REMOVED. THEN A EZEQUIEL 2 FEMORAL COMPONENT AND 3 TIBIAL COMPONENT WITH A 19 TS POLYETHYLENE COMPONENT WERE CEMENTED INTO PLACE. ONCE THE CEMENT WAS HARD THE KNEE WAS TAKEN THROUGH A ROM AGAIN AND FOUND TO BE STABLE WITH NO PATELLA TILT NO EXCESSIVE ROLL BACK WITH FLEXION AND GOOD STABILITY WITH COMPLETE AND FULL EXTENSION. THE KNEE WAS IRRIGATED WITH STERILE BETADINE AND WATER FOR ABOUT 3 MINUTES. THE BLEEDERS WERE CAUTERIZED. THE ARTHROTOMY WAS REPAIRED WITH NUMBER 1 VICRYL. THE SUB CUTANEOUS LAYER WITH 2-0 VICRYL AND THE SKIN WITH DANA. THE WOUND WAS WASHED AND A STERILE DRESSING WAS APPLIED. PATIENT WAS EXTUBATED. Estimated Blood Loss 100 Pathology None sent Complications No immediate complications Condition Stable Disposition PACU
[2024-01-28] MEDS: SODIUM CHLORIDE 0.9% IV 1,000 ML 125 ML IV CONT (13:30)
--- NOTE | 2024-01-28 13:41 | ADMGEN ---
This patient, Yareli Tripp, was admitted to [facility] Surg Room 311-01. Patient/family oriented to hospital policies and general routines including ID bracelet, bed and alarms, visiting hours, pain management, procedures, bathroom and other care routines, personal items, smoking policy, room service/diet, and visiting hours. Information on how to activate the Rapid Response Team has been discussed. Patient/Family are encouraged to report perceived risks to care and to ask questions if they do not understand what they are told or what they should do.
[2024-01-28] MEDS: SENNA/DOCUSATE SODIUM TABLET 2 TAB PO ×2 (13:52→16:50)
[2024-01-28] MEDS: amLODIPine BESYLATE 5 MG TABLET PO (13:52)
[2024-01-28] MEDS: CYANOCOBALAMIN 1,000 MCG TABLET 1000 MCG PO (13:52)
[2024-01-28] MEDS: ASPIRIN 325 MG ENTERIC TABLET PO ×2 (13:53→20:51)
[2024-01-28] MEDS: FAMOTIDINE 20 MG TABLET PO ×2 (13:53→20:52)
[2024-01-28] MEDS: polyethylene glycoL 3350 17 GM POWD.PACK PO (13:53)
[2024-01-28] MEDS: LOSARTAN POTASSIUM 25 MG TABLET PO (13:53)
[2024-01-28] MEDS: CHOLECALCIFEROL 1,000 UNITS TABLET 2000 UNITS PO (13:53)
[2024-01-28] MEDS: ACETAMINOPHEN 500 MG TABLET PO (14:47)
[2024-01-28] MEDS: oxyCODONE/ACETAMINOPHEN (*CRX) 5-325 MG TABLET 1 TABLET PO (17:26)
[2024-01-28] MEDS: diazePAM (*CRX) 5 MG TABLET PO (20:51)
[2024-01-28] MEDS: oxyCODONE/ACETAMINOPHEN (*CRX) 10-325 MG TABLET 1 TAB PO (23:48)
[2024-01-28] MEDS: ALPRAZolam (*CRX) 0.25 MG TABLET PO (23:48)
[2024-01-29 01:34] VITALS: BP 133/68; PULSE 88; RESP 18; TEMP 36.8; O2SAT 97
[2024-01-29 05:40] VITALS: BP 148/71; PULSE 86; RESP 16; TEMP 36.6; O2SAT 98
[2024-01-29] MEDS: oxyCODONE/ACETAMINOPHEN (*CRX) 5-325 MG TABLET 1 TABLET PO ×3 (05:47→13:34)
[2024-01-29] MEDS: diazePAM (*CRX) 5 MG TABLET PO (05:47)
[2024-01-29] MEDS: ceFAZolin 2 GM/D5W 50 ML 2 GM/50 ML BAG IVPB (06:08)
[2024-01-29 07:15] LABS: Basophils Absolute Auto 0.1 K/mm3 (0.0-0.1); Basophils Percent Auto 0.6 % (0.2-1.2); Eosinophils Percent Auto 0.2 % (0-4.4); Hematocrit 33.5 % (37.0-47.0); Hemoglobin 10.8 g/dL (12.0-15.0); Immature Granulocyte Absolute 0.02 K/mm3 (0.00-0.031); Immature Granulocyte Percent A 0.2 % (0-0.5); Lymphocytes Absolute Auto 1.39 K/mm3 (0.9-3.2); Lymphocytes Percent Auto 15.8 % (18.3-44.2); Mean Corpuscular HGB Conc 32.2 g/dl (32-36); Mean Corpuscular Hemoglobin 28.6 pg (26-34); Mean Corpuscular Volume 88.6 fl (80-100); Mean Platelet Volume 10.6 fl (7.4-10.4); Monocytes Absolute Auto 1.1 K/mm3 (0.1-0.6); Monocytes Percent Auto 12.1 % (2.6-8.5); Neutrophils Absolute Auto 6.3 K/mm3 (1.3-6.7); Neutrophils Percent Auto 71.1 % (45.5-73.1); Platelet Count Result 177 k/mm3 (150-375); Red Blood Count 3.78 M/mm3 (4.2-5.4); Red Cell Distribution Width 14.7 % (11.5-14.5); White Blood Count 8.8 K/mm3 (4.5-10.0)
[2024-01-29 07:27] LABS: Anion Gap 1 mmol/L (4-12); Blood Urea Nitrogen 15 mg/dL (7-17); Calcium 8.3 mg/dL (8.4-10.2); Carbon Dioxide 27 mmol/L (22-30); Chloride 108 mmol/L (98-107); Estimated CRCL calculation 49 ml/min; Estimated Glomerular Filt Rate > 60; Glucose 106 mg/dL (65-110); Potassium 3.9 mmol/L (3.4-5.0); Sodium 136 mmol/L (137-145)
[2024-01-29 08:22] VITALS: BP 131/64; PULSE 87; RESP 18; TEMP 37.1; O2SAT 96
[2024-01-29] MEDS: polyethylene glycoL 3350 17 GM POWD.PACK PO (09:34)
[2024-01-29] MEDS: ASPIRIN 325 MG ENTERIC TABLET PO (09:35)
[2024-01-29] MEDS: SENNA/DOCUSATE SODIUM TABLET 2 TAB PO (09:35)
[2024-01-29] MEDS: CYANOCOBALAMIN 1,000 MCG TABLET 1000 MCG PO (09:35)
[2024-01-29] MEDS: FAMOTIDINE 20 MG TABLET PO (09:35)
[2024-01-29] MEDS: CHOLECALCIFEROL 1,000 UNITS TABLET 2000 UNITS PO (09:35)
[2024-01-29] MEDS: amLODIPine BESYLATE 5 MG TABLET PO (09:35)
[2024-01-29] MEDS: LOSARTAN POTASSIUM 25 MG TABLET PO (09:35)
[2024-01-29 12:42] VITALS: BP 128/74; PULSE 91; RESP 16; TEMP 37.3; O2SAT 94
--- NOTE | 2024-01-29 12:44 | P.PNOP_ITS ---
Progress Note: A&P Assessment and Plan (1) S/P total knee arthroplasty: Qualifiers: Laterality: left Qualified Code(s): Z96.652 - Presence of left artificial knee joint Code(s): Z96.659 - Presence of unspecified artificial knee joint Status: Acute Assessment and Plan: POD #1 : Left TKA Continue PT/OT. WBAT. Walker. HIGH FALL RISK. Continue pain control. Ice Knee. Protect skin. DVT prophylaxis with Aspirin. SCDs. Incentive Spirometry Use reviewed. Monitor Dressing. Change prior to discharge. Bowel Regimen. Dispo: Home with Home Health pending progress with PT/OT Plan Reviewed history, exam, radiographs and current labs with attending MD and covering surgeon, Dr. Jacob, who agrees with current plan as indicated above. No further recommendations from Dr. Jacob at this time. Subjective Subjective Date/Time Seen: 01/29/24 12:44 Post Op day: 1 Interval history: POD #1: Left TKA Patient doing well. Pain well controlled. No new concerns. Working well with PT/OT. Ready for d/c home today. Review of Systems Review of Systems: All systems reviewed & are unremarkable except as noted in HPI and below Constitutional: Constitutional: Denies fever(s) and Denies headache(s) ENT: Denies headache(s) Cardiovascular: Cardiovascular: Denies chest pain, Denies diaphoresis, Denies palpitations and Denies dyspnea Respiratory: Respiratory: Denies dyspnea Gastrointestinal: Gastrointestinal: Denies abdominal pain, Denies constipation, Denies nausea and Denies vomiting Genitourinary: Genitourinary: Reports nocturia and Denies dysuria Musculoskeletal: Musculoskeletal: Reports arthralgias (Left Knee ), Reports joint swelling (Left Knee ) and Reports limited range of motion (ROM limited due to recent surgical intervention LEFT Knee ) Neurologic: Denies headache(s) Endocrine: Endocrine: Denies palpitations Exam Const: General: comfortable and no acute distress Resp: Effort & Inspection: normal respiratory effort Cardio: Rate: regular rate Rhythm: regular rhythm GI: GI Palp: Yes Soft to palpation, No Tenderness to palpation present (GI) and No Guarding due to palpation present (GI) Skin: General skin exam: wounds noted (see extremity assessment ) Wounds: wounds noted (see extremity assessment ) Neuro: Cognition (Neuro): normal cognition Other: NV intact aside from block. Moves toes. Sensation intact to light touch. +ankle dorsiflexion/plantarflexion. Extrem: Left lower extremity: normal to inspection, normal capillary refill, knee Details: tenderness (diffuse ) Location: of the patella, swelling (moderate consistent to recent surgery ), abnormal ROM (limited due to recent surgery ) Details: pain with active ROM and pain with passive ROM and ecchymosis (as expected with recent surgery. NO hematoma. ), lower leg (Negative Jesus's Sign ), ankle (+ankle dorsiflexion/plantarflexion ) Details: normal to inspection, no edema and normal ROM; no tenderness and no swelling and foot Details: normal capillary refill, toes with normal ROM, vascular exam Details: dorsalis pedis pulse present and motor-sensory exam light-touch normal; no tenderness Other: Incision left TKA dressing c/d/i. No hematoma. No signs of infection. No wound dehiscence. Psych: Mental Status: mental status grossly normal Objective Data Vital Signs Vital Signs: Vital Signs - 24 hr 01/28/24 13:05 01/28/24 13:20 01/28/24 13:50 Temperature 36.8 C 36.8 C 37.0 C Pulse Rate 83 86 89 Respiratory Rate 12 12 12 Blood Pressure 150/76 H 147/72 H 135/91 H Pulse Oximetry 96 98 95 Oxygen Delivery 01/28/24 13:59 01/28/24 14:49 01/28/24 14:50 Temperature 36.4 C Pulse Rate 91 Respiratory Rate 12 Blood Pressure 147/75 H Pulse Oximetry 97 Oxygen Delivery Room Air Room Air 01/28/24 18:55 01/28/24 21:11 01/29/24 01:34 Temperature 36.5 C 37.1 C 36.8 C Pulse Rate 87 94 88 Respiratory Rate 16 16 18 Blood Pressure 128/69 142/69 H 133/68 Pulse Oximetry 96 96 97 Oxygen Delivery 01/29/24 05:40 01/29/24 08:00 01/29/24 08:22 Temperature 36.6 C 37.1 C Pulse Rate 86 87 Respiratory Rate 16 18 Blood Pressure 148/71 H 131/64 Pulse Oximetry 98 96 Oxygen Delivery Room Air 01/29/24 12:42 Temperature 37.3 C Pulse Rate 91 Respiratory Rate 16 Blood Pressure 128/74 Pulse Oximetry 94 Oxygen Delivery Intake/Output Intake/Output: Intake & Output 01/26/24 01/27/24 01/28/24 01/29/24 23:59 23:59 23:59 23:59 Intake Total 590 840 Balance 590 840 Meds/Results Medications: Active Medications Generic Name Dose Route Start Last Admin Trade Name Freq PRN Reason Stop Dose Admin Acetaminophen 500 mg 01/28/24 12:34 01/28/24 14:47 Acetaminophen 500 Mg Tablet PO 500 mg Q6H PRN Administration Pain Rated 1-3 Alprazolam 0.25 mg 01/28/24 12:34 01/28/24 23:48 Alprazolam (*Crx) 0.25 Mg Tablet PO 0.25 mg TID PRN Administration anxiety Amlodipine Besylate 5 mg 01/28/24 12:34 01/29/24 09:35 Amlodipine Besylate 5 Mg Tablet PO 5 mg DAILY YULIYA Administration Aspirin 325 mg 01/28/24 12:34 01/29/24 09:35 Aspirin 325 Mg Enteric Tablet PO 325 mg Q12HR YULIYA Administration Celecoxib 200 mg 01/28/24 17:00 Celecoxib 200 Mg Capsule PO BIDWM YULIYA Cyanocobalamin 1,000 mcg 01/28/24 12:34 01/29/24 09:35 Cyanocobalamin 1,000 Mcg Tablet PO 02/27/24 12:33 1,000 mcg DAILY YULIYA Administration Diazepam 5 mg 01/28/24 12:34 01/29/24 05:47 Diazepam (*Crx) 5 Mg Tablet PO 5 mg Q8H PRN Administration Spasms Diphenhydramine HCl 25 mg 01/28/24 12:34 Diphenhydramine Hcl Inj 50 Mg/Ml Vial IV PUSH Q6H PRN Itching Famotidine 20 mg 01/28/24 12:34 01/29/24 09:35 Famotidine 20 Mg Tablet PO 20 mg Q12HR YULIYA Administration Hydromorphone HCl 1 mg 01/28/24 12:34 Hydromorphone Hcl Inj (*Crx) 1 Mg/Ml Syr IV PUSH Q2H PRN Breakthrough Pain Rated 7-10 or NPO Hydromorphone HCl 0.5 mg 01/28/24 12:34 Hydromorphone Hcl Inj (*Crx) 1 Mg/Ml Syr IV PUSH Q2H PRN Breakthrough Pain Rated 4-6 or NPO Ibuprofen 800 mg in 200 mls @ 400 mls/hr 01/28/24 12:34 Caldolor 800 Mg/200 Ml IVPB Q6H PRN Breakthrough Pain Rated 1-3 or NPO Loperamide HCl 2 mg 01/28/24 12:34 Loperamide Hcl 2 Mg Capsule PO Q6H PRN Pain Losartan Potassium 25 mg 01/28/24 12:34 01/29/24 09:35 Losartan Potassium 25 Mg Tablet PO 25 mg DAILY YULIYA Administration Naloxone HCl 0.1 mg 01/28/24 12:34 Naloxone Hcl 0.4 Mg/Ml Vial IV PUSH Q2M PRN Opiate Reversal Ondansetron HCl 4 mg 01/28/24 12:34 01/28/24 13:29 Ondansetron Inj 4 Mg/2 Ml Vial IV PUSH 4 mg Q4H PRN Administration Nausea And Vomiting Oxycodone/Acetaminophen 1 tablet 01/28/24 12:34 01/29/24 09:35 Oxycodone/Acetaminophen (*Crx) 5-325 Mg Tablet PO 1 tablet Q4H PRN Administration Pain Rated 4-6 Oxycodone/Acetaminophen 1 tab 01/28/24 12:34 01/28/24 23:48 Oxycodone/Acetaminophen (*Crx) 10-325 Mg Tablet PO 1 tab Q6H PRN Administration Pain Rated 7-10 Polyethylene Glycol 17 gm 01/28/24 12:34 01/29/24 09:34 Polyethylene Glycol 3350 17 Gm Powd.Pack PO 17 gm QAM YULIYA Administration Senna/Docusate Sodium 2 tab 01/28/24 12:34 01/29/24 09:35 Senna/Docusate Sodium Tablet PO 2 tab BID YULIYA Administration Vitamin D 2,000 units 01/28/24 12:34 01/29/24 09:35 Cholecalciferol 1,000 Units Tablet PO 2,000 units DAILY YULIYA Administration Radiology Results: ITS Impressions Knee X-Ray 01/28/24 11:27 IMPRESSION: 1. Recent left total knee arthroplasty. Labs Labs: Laboratory Results - last 24 hr 01/29/24 07:05 WBC 8.8 RBC 3.78 L Hgb 10.8 L D Hct 33.5 L MCV 88.6 MCH 28.6 MCHC 32.2 RDW 14.7 H Plt Count 177 MPV 10.6 H Immature Gran % (Auto) 0.2 Neut % (Auto) 71.1 Lymph % (Auto) 15.8 L [place] % (Auto) 12.1 H Eos % (Auto) 0.2 Baso % (Auto) 0.6 Lymph # (Auto) 1.39 [place] # (Auto) 1.1 H Eos # (Auto) 0.0 Baso # (Auto) 0.1 Abs Immat Gran (auto) 0.02 Absolute Neuts (auto) 6.3 Absolute Nucleated RBC 0.000 Nucleated RBC % 0.0 Sodium 136 L Potassium 3.9 Chloride 108 H Carbon Dioxide 27 Anion Gap 1 L BUN 15 D Creatinine 0.90 Estim Creat Clear Calc 49 Estimated GFR > 60 Glucose 106 Calcium 8.3 L Quality VTE Prophylaxis VTE prophylaxis: pharmacologic ordered
--- NOTE | 2024-01-29 12:47 | P.DS_ITS ---
DS: Admitting Diagnosis Discharge Date 01/29/2024 Admitting Diagnosis Left Knee DJD DS: Discharge Diagnosis Discharge Diagnosis (1) S/P total knee arthroplasty: Qualifiers: Laterality: left Qualified Code(s): Z96.652 - Presence of left artificial knee joint Code(s): Z96.659 - Presence of unspecified artificial knee joint Status: Acute Assessment and Plan: POD #1 : Left TKA Continue PT/OT. WBAT. Walker. HIGH FALL RISK. Continue pain control. Ice Knee. Protect skin. DVT prophylaxis with Aspirin. SCDs. Incentive Spirometry Use reviewed. Monitor Dressing. Change prior to discharge. Bowel Regimen. Dispo: Home with Home Health pending progress with PT/OT Plan Reviewed history, exam, radiographs and current labs with attending MD and covering surgeon, Dr. Jacob, who agrees with current plan as indicated above. No further recommendations from Dr. Jacob at this time. DS: Summary Hospital Course Reason for hospitalization: Left TKA Hospital Course: 78 year old female admitted s/p Left TKA for postoperative medical management, pain control and mobilization with PT/OT. Patient progressed well with PT/OT. Pain and vitals remained stable throughout. The patient has been cleared to be discharged home with home health at this time. All discharge care instructions reviewed at depth. New medications reviewed. Follow up planned for 3 weeks in the outpatient orthopedic clinic with Dr. Jacob. Dr. Jacob in agreement with safe discharge at this time. Status at Discharge Functional status at discharge: uses cane/walker Overall status at discharge: patient is progressing back to baseline Time Spent with Patient Time attestation: Total time spent providing and/or coordinating discharge services: Time spent: Less than 30 minutes Exam Const: General: comfortable and no acute distress Resp: Effort & Inspection: normal respiratory effort Cardio: Rate: regular rate Rhythm: regular rhythm Skin: General skin exam: wounds noted (see extremity assessment ) Wounds: wounds noted (see extremity assessment ) Neuro: Cognition (Neuro): normal cognition Other: NV intact aside from block. Moves toes. Sensation intact to light touch. +ankle dorsiflexion/plantarflexion. Extrem: Left lower extremity: normal to inspection, normal capillary refill, knee Details: tenderness (diffuse ) Location: of the patella, swelling (moderate consistent to recent surgery ), abnormal ROM (limited due to recent surgery ) Details: pain with active ROM and pain with passive ROM and ecchymosis (as expected with recent surgery. NO hematoma. ), lower leg (Negative Jesus's Sign ), ankle (+ankle dorsiflexion/plantarflexion ) Details: normal to inspection, no edema and normal ROM; no tenderness and no swelling and foot Details: normal capillary refill, toes with normal ROM, vascular exam Details: dorsalis pedis pulse present and motor-sensory exam light-touch normal; no tenderness Other: Incision left TKA dressing c/d/i. No hematoma. No signs of infection. No wound dehiscence. Psych: Mental Status: mental status grossly normal DS: Data Data Completed and Pending Labs on day of discharge: Labs from last 24 hours 01/29/24 07:05 WBC 8.8 RBC 3.78 L Hgb 10.8 L D Hct 33.5 L MCV 88.6 MCH 28.6 MCHC 32.2 RDW 14.7 H Plt Count 177 MPV 10.6 H Immature Gran % (Auto) 0.2 Neut % (Auto) 71.1 Lymph % (Auto) 15.8 L [place] % (Auto) 12.1 H Eos % (Auto) 0.2 Baso % (Auto) 0.6 Lymph # (Auto) 1.39 [place] # (Auto) 1.1 H Eos # (Auto) 0.0 Baso # (Auto) 0.1 Abs Immat Gran (auto) 0.02 Absolute Neuts (auto) 6.3 Absolute Nucleated RBC 0.000 Nucleated RBC % 0.0 Sodium 136 L Potassium 3.9 Chloride 108 H Carbon Dioxide 27 Anion Gap 1 L BUN 15 D Creatinine 0.90 Estim Creat Clear Calc 49 Estimated GFR > 60 Glucose 106 Calcium 8.3 L Discharge Plan Discharge Patient Disposition: Home Health Service Discharge Instructions: Post Op Total Knee Replacement Instructions Dr. Raj Jacob [phone] * Your dressing will be changed prior to your discharge. You will be sent home with one additional dressing to be changed on post op day 7 by the home health RN. Your ronald will be removed on the 14th day after surgery and steri- strips will be placed. Please practice good hand hygiene and do not touch your incision in order to prevent infection. * You may shower with your dressing but do not submerge in a bath tub. * Do not drive or operate machinery until you are released by Dr. Jacob. * Do not walk without a walker for any reason until you are released by Dr. Jacob. * Continue to use your ice machine. Please use a towel or pillow case to protect your skin before applying your ice machine. * Do NOT place a pillow under your knee. You may use a pillow from the calf down if needed. This will prevent a flexion contracture postoperatively. * CPM: You may begin use of your CPM machine at home if you have been given one pre-operatively. DO NOT USE WHILE YOU ARE SLEEPING. * ROMTech: If you were given a ROMTech Portable Connect System preoperatively, you are to begin use on the day you arrive home postoperatively. Our goal is for you to use the machine 5 times per day. The sessions are very short in the beginning and will progress as you progress. We are able to monitor your progress from afar as well as your pain and other reported symptoms. If you have difficulties with the machine, please call . NOTE: Please attempt to use the machine even when in pain as this will house mover helper your therapy with very gentle motion. * Your first post op appointment was sent to you via mail preoperatively. If you have any questions or are unable to make your appointment, please contact our office for scheduling questions. * Your medications have been sent to your pharmacy. You have been sent home with pain medication. Please order picker/assembler an over the counter stool softener to prevent constipation due to narcotic use. Please keep this in mind during your postoperative recovery. If you are not experiencing regular bowel movements, please contact our office for further instruction. * Please contact our office with any questions/concerns regarding your knee at [phone]. Per Care Coordination: [facility] has been arranged for physical and occupational therapy ([phone]) they are scheduled to see you tomorrow 01/30/24 and will call you regarding start of visit. Patient Instructions: Antibiotic Form Patient Language: Mauritian Stand Alone Forms: General Discharge Information Follow-up/Referrals: Raj Jacob MD [Physician] - Keep Reg. Scheduled Appt. Discharge Medications: New aspirin 325 mg Tablet,Delayed Release (Dr/Ec) 325 mg PO Q12HR 28 Days Qty: 56 0RF celecoxib [Celebrex] 200 mg Capsule 200 mg PO BIDWM 14 Days Qty: 28 0RF oxycodone-acetaminophen 5-325 mg Tablet 1 - 2 tablet PO Q4-6H PRN (Reason: Pain Rated 4-6) Qty: 56 0RF Continued mecobalamin (vitamin B12) 1,000 mcg tablet,disintegrating 1,000 mcg sublingual DAILY Rx Instructions: place tablet under tongue and allow to dissolve for at least30 secs before swallowing vitamin B complex Capsule 1 cap PO DAILY losartan 25 mg tablet 25 mg PO DAILY Qty: 30 0RF amlodipine 5 mg tablet 5 mg PO DAILY Qty: 30 0RF ibuprofen 200 mg Capsule 400 mg PO Q6H PRN (Reason: Pain) cholecalciferol (vitamin D3) 50 mcg (2,000 unit) Capsule 50 mcg PO DAILY Calcium Magnesium 500 mg calcium- 250 mg Tablet 2 tablet PO BID acetaminophen 650 mg Tablet Extended Release 1,300 mg PO Q12H PRN (Reason: Pain) loperamide 2 mg Capsule 2 mg PO Q6H PRN (Reason: Pain) [id number]-acetaminophen Capsule 2 cap PO HS PRN (Reason: Insomnia) pseudoephedrine HCl 60 mg Tablet 60 mg PO Q4-6H PRN (Reason: Sinus Symptoms) Rx Instructions: DNExceed 4 doses/24h alprazolam [Xanax] 0.25 mg tablet 0.25 mg PO TID PRN (Reason: anxiety) Qty: 60 0RF Quality VTE Prophylaxis VTE prophylaxis: pharmacologic ordered
== END 2024-01-29 14:10 | disposition home health service (06) ==
LOC: ANHSURGERY 05:43 → ANH3MEDSUR 13:17
PROVIDERS: PCP Family Medicine; Visit Provider Orthopaedic Surgery
PROC: (CPT 27447; principal; 2024-01-28 07:30)
DX: M17.12 Unilateral primary osteoarthritis, left knee (principal); G89.18 Other acute postprocedural pain
CPT/HCPCS: 27447; 64447; 36415; 73560; 80048; 85025; 86850; 86900; 86901; 97110; 97116; 97161; 97165; 97530; 97535; A9270; C1713; J0171; J0690; J1100; J1885; J2270; J2405; J2704; J2795; J3010; J3370; J7030; J7120

== ENCOUNTER 2024-04-21 14:30 | Outpatient (RCR) | payer OTHER, SELFPAY ==
--- NOTE | 2024-03-09 15:40 | OPREHPOC ---
Outpatient Therapy Plan of Care This is a Multidisciplinary Plan of Care that may contain components documented by all disciplines (PT, OT, and ST.) PT Problem 1 PT Problem #1 Knowledge Deficit PT Goal 1 Goal / Goal Update Pt to be IND with issued HEP Target Visit 20 PT Problem 2 PT Problem #2 Pain PT Goal 1 Goal / Goal Update 1. Pt to report knee pain no greater than 3/10 in the last week. 2. Pt to report 75% improvement in overall symptoms. Target Visit 20 PT Problem 3 PT Problem #3 Impaired Range of Motion PT Goal 1 Goal / Goal Update 1. Pt to improve passive knee flexion ROM to 120 deg 2. Pt to demonstrate passive knee extension ROM to greater than 3 degs to improve stride length. PT Problem 4 PT Problem #4 Impaired Gait PT Goal 1 Goal / Goal Update 1. Pt to improve 2 min walk distance from 275ft to 375ft. 2. Pt to ambulate on level ground for 2 mins without AD. Target Visit 20
--- NOTE | 2024-03-09 15:40 | PTOPEVAL1 ---
Assessment and note entered by Josette Vicente, PT, DPT Evaluation Information Assessment Status Evaluation Diagnosis L TKA ICD-10 Condition Codes (PT) Pain in left knee M25.562,Difficulty Walking R26.2 ,Weakness R53.1,Encounter for other orthopedic aftercare Z47.89 Onset 01/28/24 Subjective Information Pt has a L TKA on 01/28/24, she had complete 6 weeks on PT. Pt states she has been really diligent with her exercises. She is currently using a WW but did not use anything prior to surgery. She is still taking Tylenol and Advil daily for her pain. She has 3 steps to get into her home. Pt states she would like be able to walk around her neighborhood for exercise. Reported Pain Level Pain Score 5: Self Report Assessment PT Clinical Summary Pt presents to therapy today for her initial evaluation following a L TKA on 01/28/24. Today she demonstrates decreased active and passive ROM, decreased strength, and decreased functional mobility. She currently requires an AD for ambulation. There is pitting edema present. Skilled therapy services are indicated to address the deficits noted above, to manage pain, and to return to PLOF. Plan of Care Interventions Electrical Stimulation,Gait Training,Hot Pack/Cold Pack,Intermittent Compression Pump,Manual Therapy ,Neuro Re-education,Patient/Caregiver Education, Therapeutic Activities,Therapeutic Exercise PT Services Indicated Yes Treatment Frequency and 2x/wk for 20 visits Duration These treatments will address the objective and functional deficits as defined above. The patient will be advanced safely and appropriately in order for the patient to progress towards his/her prior level of function. Additional exercises will be introduced and as well as a comprehensive home exercise program upon discharge, if needed, ?to ensure carryover of functional gains achieved in the clinic. This treatment plan has been reviewed and agreement upon by the patient.
--- NOTE | 2024-04-21 16:16 | OPREHPOC ---
Outpatient Therapy Plan of Care This is a Multidisciplinary Plan of Care that may contain components documented by all disciplines (PT, OT, and ST.) PT Problem 1 PT Problem #1 Knowledge Deficit PT Goal 1 Goal / Goal Update Pt to be IND with issued HEP Target Visit 20 Progress Met PT Problem 2 PT Problem #2 Pain PT Goal 1 Goal / Goal Update 1. Pt to report knee pain no greater than 3/10 in the last week. 2. Pt to report 75% improvement in overall symptoms. 04/21/24: 1. met 2. met, 75% Target Visit 20 PT Problem 3 PT Problem #3 Impaired Range of Motion PT Goal 1 Goal / Goal Update 1. Pt to improve passive knee flexion ROM to 120 deg 2. Pt to demonstrate passive knee extension ROM to greater than 3 degs to improve stride length. 04/21/24: 1. progression 2. met PT Problem 4 PT Problem #4 Impaired Gait PT Goal 1 Goal / Goal Update 1. Pt to improve 2 min walk distance from 275ft to 375ft. 2. Pt to ambulate on level ground for 2 mins without AD. 04/21/24: 1. progressing, 350ft 2. met Target Visit 20
--- NOTE | 2024-04-21 16:16 | PTOPDC ---
Assessment and note entered by Josette Vicente, PT, DPT Evaluation Information Assessment Status discharge Diagnosis L TKA ICD-10 Condition Codes (PT) Pain in left knee M25.562,Difficulty Walking R26.2 ,Weakness R53.1,Encounter for other orthopedic aftercare Z47.89 Onset 01/28/24 Subjective Information Pt states things are going okay. She states she can go to the small grocery store, but not the large one, she states she has not tried to do more . She states she does not try carrying anything cause she does not want to set herself off balance . She states she does not do a lot of activity at her baseline, so it feels like she is back to baseline. Reported Pain Level Pain Score 3,4: Self Report Assessment PT Clinical Summary Pt presents to therapy today for her progress report following 9 visits of skilled therapy following a L TKA on 01/28/24. Today she demonstrates improved gait speed and improved functional strength. Her pain has improved since starting therapy. She reports a 75% reports to her PLOF. Pt no longer requires skilled services and will be discharged at this time. Plan of Care PT Services Indicated No
== END 2024-04-22 08:46 | disposition home or self-care (01) ==
LOC: ANHGOSHPT 14:30
PROVIDERS: PCP Family Medicine; Visit Provider Orthopaedic Surgery
DX: Z47.1 Aftercare following joint replacement surgery (principal); M17.11 Unilateral primary osteoarthritis, right knee; M17.12 Unilateral primary osteoarthritis, left knee; Z96.652 Presence of left artificial knee joint
CPT/HCPCS: 97016; 97110; 97112; 97140; 97161; 97530

== ENCOUNTER 2024-07-20 09:51 | Outpatient (CLI) | payer OTHER, SELFPAY ==
--- OUTSIDE RECORDS SUMMARY | 2024-07-20 10:38 | XMS_ITS | Referral Summary ---
Author Organization [facility] Address [address] [place] [address] Phone Care Team Providers Care Recycling Director Name Role Phone Seema Waters MD Primary Care Provider [phone] Allergies No known active allergies Medications ibuprofen (ADVIL,MOTRIN) 200 mg tab/cap TAKE 1 TABLET EVERY 6 HOURS NEEDED. Active ALPRAZolam (XANAX) 0.25 mg tablet TAKE 1 TABLET 3 TIMES DAILY NEEDED. Active calcium-magnesiu m 300-300 mg tablet 1,000 mg 4 (four) times a day. 10/19/2014 Active cholecalciferol (VITAMIN D-3) 5,000 unit capsule Take 2,000 Units by mouth daily Pt takes 2000 units daily Active white petrolatum-skip miner blasting al oil (white petrolatum-skip miner blasting al oiL) ointment 10/19/2014 Ac tive peg 400-propylene glycol (SYSTANE) 0.4-0.3 % ophthalmic solution Active vit B complex 100 no.3-herbs 100 mg tablet daily. 10/19/2014 Activ e cyanocobalamin, vitamin B-12, 1,000 mcg tablet extended release daily. Act stephenie amLODIPine (NORVASC) 5 mg tablet Take 1 tablet (5 mg total) by mouth daily 02/11/2024 Active losartan (COZAAR) 25 mg tablet Take 1 tablet (25 mg total) by mouth daily 03/23/2024 Active Hospital, Clinic, or Other Facility Administered Medication Ordered Dose Route Frequency Start Date End Date Status onabotulinumtoxin A (BOTOX) injection 400 UnitsIndications:Светлана ge syndrome (blepharospasm with oromandibular dystonia),Cervical dystonia 400 Units IM Once for Clinic-Administer ed Medication 07/27/2024 07/26/2025 Active Active Problems Problem Noted Date Diagnosed Date Blepharospasm 08/20/2017 Assessment & Plan (01/06/2024 11:49 AM TRANSVERSE ABDOMINAL MUSCLE SURGEON): She has late adult onset, idiopathic craniocervical dystonia with blepharospasm, oromandibular and cervical dystonia. She had good benefits from the last botulinum toxin injections. This benefits have now started wearing off and she would be an appropriate candidate for repeat injections. The potential risks (including but not limited to bruising, hematoma, neck weakness, eyelid drooping, weakness, dysphagia, infection and injection site pain etc.), benefits, alternatives to chemodenervation were discussed and a signed consent was obtained. Recommendations: Botox injected as detailed below. Botox administered: 372.5 U (amount wasted: 27.5 U) injected into the following muscles using a 1 ml dilution: 30U Levator Scapulae (left) 20U Splenius Capitis (left) 15U Sternocleidomastoid (left) 40U Levator Scapulae (right) 30U Splenius Capitis (right) 50U Sternocleidomastoid (right) 37.5U Orbicularis Oculi (left) 30U Orbicularis Oculi (right) 20U Trapezius (left) 100U Trapezius (right) Assessment & Plan (10/08/2023 12:13 PM CDT): She has late adult onset, idiopathic craniocervical dystonia with blepharospasm, oromandibular and cervical dystonia. She had good benefits from the last botulinum toxin injections. This benefits have now started wearing off and she would be an appropriate candidate for repeat injections. The potential risks (including but not limited to bruising, hematoma, neck weakness, eyelid drooping, weakness, dysphagia, infection and injection site pain etc.), benefits, alternatives to chemodenervation were discussed and a signed consent was obtained. Recommendations: Botox injected as detailed below. Botox administered: 372.5 U (amount wasted: 27.5 U) injected into the following muscles using a 1 ml dilution: 30U Levator Scapulae (left) 20U Splenius Capitis (left) 15U Sternocleidomastoid (left) 40U Levator Scapulae (right) 30U Splenius Capitis (right) 50U Sternocleidomastoid (right) 37.5U Orbicularis Oculi (left) 30U Orbicularis Oculi (right) 20U Trapezius (left) 100U Trapezius (right) Assessment & Plan (07/01/2023 8:59 AM CDT): She has late adult onset, idiopathic craniocervical dystonia with blepharospasm, oromandibular and cervical dystonia. She had good benefits from the last botulinum toxin injections. This benefits have now started wearing off and she would be an appropriate candidate for repeat injections. The potential risks (including but not limited to bruising, hematoma, neck weakness, eyelid drooping, weakness, dysphagia, infection and injection site pain etc.), benefits, alternatives to chemodenervation were discussed and a signed consent was obtained. Recommendations: Botox injected as detailed below. Botox administered: 352.5 U (amount wasted: 47.5 U) injected into the following muscles using a 1 ml dilution: 30U Levator Scapulae (left) 20U Splenius Capitis (left) 15U Sternocleidomastoid (left) 40U Levator Scapulae (right) 30U Splenius Capitis (right) 50U Sternocleidomastoid (right) 37.5U Orbicularis Oculi (left) 30U Orbicularis Oculi (right) 20U Trapezius (left) 80U Trapezius (right) Assessment & Plan (2023 10:48 AM TRANSVERSE ABDOMINAL MUSCLE SURGEON): She has late adult onset, idiopathic craniocervical dystonia with blepharospasm, oromandibular and cervical dystonia. She had fair benefits from the last botulinum toxin injections. This benefits have now started wearing off and she would be an appropriate candidate for repeat injections. The potential risks (including but not limited to bruising, hematoma, neck weakness, eyelid drooping, weakness, dysphagia, infection and injection site pain etc.), benefits, alternatives to chemodenervation were discussed and a signed consent was obtained. Recommendations: Botox injected as detailed below. Botox administered: 352.5 U (amount wasted: 47.5 U) injected into the following muscles using a 1 ml dilution: 30U Levator Scapulae (left) 20U Splenius Capitis (left) 15U Sternocleidomastoid (left) 40U Levator Scapulae (right) 30U Splenius Capitis (right) 50U Sternocleidomastoid (right) 37.5U Orbicularis Oculi (left) 30U Orbicularis Oculi (right) 20U Trapezius (left) 80U Trapezius (right) Assessment & Plan (12/31/2022 10:14 AM TRANSVERSE ABDOMINAL MUSCLE SURGEON): She has late adult onset, idiopathic craniocervical dystonia with blepharospasm, oromandibular and cervical dystonia. She had good benefits from the last botulinum toxin injections. This benefits have now started wearing off and she would be an appropriate candidate for repeat injections. The potential risks (including but not limited to bruising, hematoma, neck weakness, eyelid drooping, weakness, dysphagia, infection and injection site pain etc.), benefits, alternatives to chemodenervation were discussed and a signed consent was obtained. Recommendations: Botox injected as detailed below. Botox administered: 332.5 U (amount wasted: 67.5 U) injected into the following muscles using a 1 ml dilution: 30U Levator Scapulae (left) 20U Splenius Capitis (left) 15U Sternocleidomastoid (left) 40U Levator Scapulae (right) 30U Splenius Capitis (right) 50U Sternocleidomastoid (right) 27.5U Orbicularis Oculi (left) 20U Orbicularis Oculi (right) 20U Trapezius (left) 80U Trapezius (right) Assessment & Plan (10/02/2022 10:50 AM CDT): She has late adult onset, idiopathic craniocervical dystonia with blepharospasm, oromandibular and cervical dystonia. She had good benefits from the last botulinum toxin injections. This benefits have now started wearing off and she would be an appropriate candidate for repeat injections. The potential risks (including but not limited to bruising, hematoma, neck weakness, eyelid drooping, weakness, dysphagia, infection and injection site pain etc.), benefits, alternatives to chemodenervation were discussed and a signed consent was obtained. Recommendations: Botox injected as detailed below. Botox administered: 332.5 U (amount wasted: 67.5 U) injected into the following muscles using a 1 ml dilution: 30U Levator Scapulae (left) 20U Splenius Capitis (left) 15U Sternocleidomastoid (left) 40U Levator Scapulae (right) 30U Splenius Capitis (right) 50U Sternocleidomastoid (right) 27.5U Orbicularis Oculi (left) 20U Orbicularis Oculi (right) 20U Trapezius (left) 80U Trapezius (right) Assessment & Plan (07/04/2022 8:24 AM CDT): She has late adult onset, idiopathic craniocervical dystonia with blepharospasm, oromandibular and cervical dystonia. She had good benefits from the last botulinum toxin injections. This benefits have now started wearing off and she would be an appropriate candidate for repeat injections. The potential risks (including but not limited to bruising, hematoma, neck weakness, eyelid drooping, weakness, dysphagia, infection and injection site pain etc.), benefits, alternatives to chemodenervation were discussed and a signed consent was obtained. Recommendations: Botox injected as detailed below. Botox administered: 332.5 U (amount wasted: 67.5 U) injected into the following muscles using a 1 ml dilution: 30U Levator Scapulae (left) 20U Splenius Capitis (left) 15U Sternocleidomastoid (left) 40U Levator Scapulae (right) 30U Splenius Capitis (right) 50U Sternocleidomastoid (right) 27.5U Orbicularis Oculi (left) 20U Orbicularis Oculi (right) 20U Trapezius (left) 80U Trapezius (right) Assessment & Plan (04/04/2022 8:06 PM TRANSVERSE ABDOMINAL MUSCLE SURGEON): She has late adult onset, idiopathic craniocervical dystonia with blepharospasm, oromandibular and cervical dystonia. She had good benefits from the last botulinum toxin injections. This benefits have now started wearing off and she would be an appropriate candidate for repeat injections. The potential risks (including but not limited to bruising, hematoma, neck weakness, eyelid drooping, weakness, dysphagia, infection and injection site pain etc.), benefits, alternatives to chemodenervation were discussed and a signed consent was obtained. Recommendations: Botox injected as detailed below. Botox administered: 332.5 U (amount wasted: 67.5 U) injected into the following muscles using a 1 ml dilution: 30U Levator Scapulae (left) 20U Splenius Capitis (left) 15U Sternocleidomastoid (left) 40U Levator Scapulae (right) 30U Splenius Capitis (right) 50U Sternocleidomastoid (right) 27.5U Orbicularis Oculi (left) 20U Orbicularis Oculi (right) 20U Trapezius (left) 80U Trapezius (right) Assessment & Plan (01/01/2022 11:06 AM TRANSVERSE ABDOMINAL MUSCLE SURGEON): She has late adult onset, idiopathic craniocervical dystonia with blepharospasm, oromandibular and cervical dystonia. She had good benefits from the last botulinum toxin injections. This benefits have now started wearing off and she would be an appropriate candidate for repeat injections. The potential risks (including but not limited to bruising, hematoma, neck weakness, eyelid drooping, weakness, dysphagia, infection and injection site pain etc.), benefits, alternatives to chemodenervation were discussed and a signed consent was obtained. Recommendations: Botox injected as detailed below. Botox administered: 332.5 U (amount wasted: 67.5 U) injected into the following muscles using a 1 ml dilution: 30U Levator Scapulae (left) 20U Splenius Capitis (left) 15U Sternocleidomastoid (left) 40U Levator Scapulae (right) 30U Splenius Capitis (right) 50U Sternocleidomastoid (right) 27.5U Orbicularis Oculi (left) 20U Orbicularis Oculi (right) 20U Trapezius (left) 80U Trapezius (right) Assessment & Plan (09/25/2021 11:19 AM CDT): She has late adult onset, idiopathic craniocervical dystonia with blepharospasm, oromandibular and cervical dystonia. She would be an appropriate candidate for repeat injections. The potential risks (including but not limited to bruising, hematoma, neck weakness, eyelid drooping, dysphagia, infection and injection site pain etc.), benefits, alternatives to chemodenervation were discussed and a signed consent was obtained. Recommendations: Botox injected as detailed below. Botox administered: 332.5 U (amount wasted: 67.5 U) injected into the following muscles using a 1 ml dilution: 30U Levator Scapulae (left) 20U Splenius Capitis (left) 15U Sternocleidomastoid (left) 40U Levator Scapulae (right) 30U Splenius Capitis (right) 50U Sternocleidomastoid (right) 27.5U Orbicularis Oculi (left) 20U Orbicularis Oculi (right) 20U Trapezius (left) 80U Trapezius (right) Assessment & Plan (06/27/2021 4:24 PM CDT): She has late adult onset, idiopathic craniocervical dystonia with blepharospasm, oromandibular and cervical dystonia. She would be an appropriate candidate for repeat injections. The potential risks (including but not limited to bruising, hematoma, neck weakness, eyelid drooping, dysphagia, infection and injection site pain etc.), benefits, alternatives to chemodenervation were discussed and a signed consent was obtained. Recommendations: Botox injected as detailed below. Botox administered: 332.5 U (amount wasted: 67.5 U) injected into the following muscles using a 1 ml dilution: 30U Levator Scapulae (left) 20U Splenius Capitis (left) 15U Sternocleidomastoid (left) 40U Levator Scapulae (right) 30U Splenius Capitis (right) 50U Sternocleidomastoid (right) 27.5U Orbicularis Oculi (left) 20U Orbicularis Oculi (right) 20U Trapezius (left) 80U Trapezius (right) Assessment & Plan (04/06/2021 7:32 AM TRANSVERSE ABDOMINAL MUSCLE SURGEON): She has late adult onset, idiopathic craniocervical dystonia with blepharospasm, oromandibular and cervical dystonia. She would be an appropriate candidate for repeat injections. The potential risks (including but not limited to bruising, hematoma, neck weakness, eyelid drooping, dysphagia, infection and injection site pain etc.), benefits, alternatives to chemodenervation were discussed and a signed consent was obtained. Recommendations: Botox injected as detailed below. Botox administered: 332.5 U (amount wasted: 67.5 U) injected into the following muscles using a 1 ml dilution: 30U Levator Scapulae (left) 20U Splenius Capitis (left) 15U Sternocleidomastoid (left) 40U Levator Scapulae (right) 30U Splenius Capitis (right) 50U Sternocleidomastoid (right) 27.5U Orbicularis Oculi (left) 20U Orbicularis Oculi (right) 20U Trapezius (left) 80U Trapezius (right) Assessment & Plan (12/26/2020 10:25 AM TRANSVERSE ABDOMINAL MUSCLE SURGEON): She has late adult onset, idiopathic craniocervical dystonia with blepharospasm, oromandibular and cervical dystonia. She would be an appropriate candidate for repeat injections. The potential risks (including but not limited to bruising, hematoma, neck weakness, eyelid drooping, dysphagia, infection and injection site pain etc.), benefits, alternatives to chemodenervation were discussed and a signed consent was obtained. Recommendations: Botox injected as detailed below. Botox administered: 292.5 U (amount wasted: 7.5 U) injected into the following muscles using a 1 ml dilution: 15U Levator Scapulae (left) 15U Splenius Capitis (left) 15U Sternocleidomastoid (left) 20U Levator Scapulae (right) 30U Splenius Capitis (right) 50U Sternocleidomastoid (right) 27.5U Orbicularis Oculi (left) 20U Orbicularis Oculi (right) 20U Trapezius (left) 80U Trapezius (right) Assessment & Plan (08/22/2020 2:32 PM CDT): She has late adult onset, idiopathic craniocervical dystonia with blepharospasm, oromandibular and cervical dystonia. She would be an appropriate candidate for repeat injections. The potential risks (including but not limited to bruising, hematoma, neck weakness, eyelid drooping, dysphagia, infection and injection site pain etc.), benefits, alternatives to chemodenervation were discussed and a signed consent was obtained. Recommendations: Botox injected as detailed below. Botox administered: 292.5 U (amount wasted: 7.5 U) injected into the following muscles using a 1 ml dilution: 15U Levator Scapulae (left) 15U Splenius Capitis (left) 15U Sternocleidomastoid (left) 20U Levator Scapulae (right) 30U Splenius Capitis (right) 50U Sternocleidomastoid (right) 27.5U Orbicularis Oculi (left) 20U Orbicularis Oculi (right) 20U Trapezius (left) 80U Trapezius (right) Assessment & Plan (05/09/2020 9:56 AM CDT): She has late adult onset, idiopathic craniocervical dystonia with blepharospasm, oromandibular and cervical She would be an appropriate candidate for repeat injections. The potential risks (including but not limited to bruising, hematoma, neck weakness, eyelid drooping, dysphagia, infection and injection site pain etc.), benefits, alternatives to chemodenervation were discussed and a signed consent was obtained. Recommendations: Botox injected as detailed below. Botox administered: 247.5 U (amount wasted: 52.5 U) injected into the following muscles using a 1 ml dilution: 10U Levator Scapulae (left) 10U Splenius Capitis (left) 20U Levator Scapulae (right) 30U Splenius Capitis (right) 30U Sternocleidomastoid (right) 27.5U Orbicularis Oculi (left) 20U Orbicularis Oculi (right) 20U Trapezius (left) 80U Trapezius (right) Assessment & Plan (02/08/2020 3:22 PM TRANSVERSE ABDOMINAL MUSCLE SURGEON): She has late adult onset, idiopathic craniocervical dystonia with blepharospasm, oromandibular and cervical dystonia. She had excellent benefits for blepharospasm from the last botulinum toxin injections. This benefit has now started wearing off. She has continued to experience the dysphagia inspite of skipping the prior botulinum toxin injections, but her neck tightness has worsened in the interim. She would be an appropriate candidate for repeat injections. The potential risks (including but not limited to bruising, hematoma, neck weakness, eyelid drooping, dysphagia, infection and injection site pain etc.), benefits, alternatives to chemodenervation were discussed and a signed consent was obtained. Recommendations: Botox injected as detailed below. May consider speech therapy evaluation including MBS. Botox administered: 247.5 U (amount wasted: 52.5 U) injected into the following muscles using a 1 ml dilution: 10U Levator Scapulae (left) 10U Splenius Capitis (left) 20U Levator Scapulae (right) 30U Splenius Capitis (right) 30U Sternocleidomastoid (right) 27.5U Orbicularis Oculi (left) 20U Orbicularis Oculi (right) 20U Trapezius (left) 80U Trapezius (right) Assessment & Plan (11/10/2019 1:58 PM CDT): She has late adult onset, idiopathic craniocervical dystonia with blepharospasm, oromandibular and cervical dystonia. She had excellent benefits for blepharospasm from the last botulinum toxin injections and less benefits for cervical dystonia given the dose reduction at the last visit for her underlying dysphagia. But she has continued to experience the dysphagia without any definitive temporal relationship with the botulinum toxin injections. We discussed the options and decided to hold off on the neck injections to gauge the contributions to dysphagia; she may benefit from a MBS depending on the symptoms. This benefit has now started wearing off. She would be an appropriate candidate for repeat injections. The potential risks (including but not limited to bruising, hematoma, neck weakness, eyelid drooping, dysphagia, infection and injection site pain etc.), benefits, alternatives to chemodenervation were discussed and a signed consent was obtained. Recommendations: Botox injected as detailed below. May consider speech therapy evaluation including MBS. Botox administered: 47.5 U (amount wasted: 52.5 U) injected into the following muscles using a 1 ml dilution: 5U Special Ed Assistant Supercilii (left) 22.5U Orbicularis Oculi (left) 20U Orbicularis Oculi (right) Assessment & Plan (08/10/2019 11:06 AM CDT): She has late adult onset, idiopathic craniocervical dystonia with blepharospasm, oromandibular and cervical dystonia. She had excellent benefits for blepharospasm from the last botulinum toxin injections and good benefits for cercial dystonia. This benefit has now started wearing off. She would be an appropriate candidate for repeat injections. The potential risks (including but not limited to bruising, hematoma, neck weakness, eyelid drooping, dysphagia, infection and injection site pain etc.), benefits, alternatives to chemodenervation were discussed and a signed consent was obtained. Recommendations: Botox injected as detailed below. Botox administered: 247.5 U (amount wasted: 52.5 U) injected into the following muscles using a 1 ml dilution: 10U Levator Scapulae (left) 10U Splenius Capitis (left) 20U Levator Scapulae (right) 30U Splenius Capitis (right) 30U Sternocleidomastoid (right) 5U Epicranius - Occipitofrontalis Mary Lou Frontalis (left) 5U Epicranius - Occipitofrontalis Mary Lou Frontalis (right) 22.5U Orbicularis Oculi (left) 15U Orbicularis Oculi (right) 20U Trapezius (left) 80U Trapezius (right) Assessment & Plan (03/04/2019 12:27 PM TRANSVERSE ABDOMINAL MUSCLE SURGEON): She has late adult onset, idiopathic craniocervical dystonia with blepharospasm, oromandibular and cervical dystonia. She had excellent benefits for blepharospasm from the last botulinum toxin injections and fair benefits for cercial dystonia. This benefit has now started wearing off. She would be an appropriate candidate for repeat injections. The potential risks (including but not limited to bruising, hematoma, neck weakness, eyelid drooping, dysphagia, infection and injection site pain etc.), benefits, alternatives to chemodenervation were discussed and a signed consent was obtained. She would need a higher dose for optimal benefits, our office will preauthorize this. Recommendations: Botox injected as detailed below. Botox administered: 277.5 U (amount wasted: 22.5 U) injected into the following muscles using a 1 ml dilution: 10U Levator Scapulae (left) 10U Splenius Capitis (left) 20U Levator Scapulae (right) 30U Splenius Capitis (right) 60U Sternocleidomastoid (right) 27.5U Orbicularis Oculi (left) 20U Orbicularis Oculi (right) 20U Trapezius (left) 80U Trapezius (right) Assessment & Plan (11/25/2018 10:51 AM CDT): She has late adult onset, idiopathic craniocervical dystonia with blepharospasm, oromandibular and cervical dystonia. She had excellent benefits for blepharospasm from the last botulinum toxin injections, but only fair benefits for cercial dystonia. This benefit has now started wearing off. She would be an appropriate candidate for repeat injections. The potential risks (including but not limited to bruising, hematoma, neck weakness, eyelid drooping, dysphagia, infection and injection site pain etc.), benefits, alternatives to chemodenervation were discussed and a signed consent was obtained. She would need a higher dose for optimal benefits, our office will preauthorize this. Recommendations: Botox injected as detailed below. Botox administered: 232.5 U (amount wasted: 67.5 U) injected into the following muscles using a 1 ml dilution: 15U Levator Scapulae (right) 10U Splenius Capitis (right) 60U Sternocleidomastoid (right) 5U Epicranius - Occipitofrontalis Mary Lou Frontalis (left) 5U Epicranius - Occipitofrontalis Mary Lou Frontalis (right) 22.5U Orbicularis Oculi (left) 15U Orbicularis Oculi (right) 20U Trapezius (left) 80U Trapezius (right) Assessment & Plan (09/02/2018 11:36 AM CDT): She has late adult onset, idiopathic craniocervical dystonia with blepharospasm, oromandibular and cervical dystonia. She had excellent benefits for blepharospasm from the last botulinum toxin injections, but only fair benefits for cercial dystonia. This benefit has now started wearing off. She would be an appropriate candidate for repeat injections. The potential risks (including but not limited to bruising, hematoma, neck weakness, eyelid drooping, dysphagia, infection and injection site pain etc.), benefits, alternatives to chemodenervation were discussed and a signed consent was obtained. She would need a higher dose for optimal benefits, our office will preauthorize this. Recommendations: Botox injected as detailed below. Please preauthorize 300 Units of Botox. Botox administered: 187.5 U (amount wasted: 12.5 U) injected into the following muscles using a 1 ml dilution: 10U Splenius Capitis (right) 30U Sternocleidomastoid (right) 5U Epicranius - Occipitofrontalis Mary Lou Frontalis (left) 5U Epicranius - Occipitofrontalis Mary Lou Frontalis (right) 22.5U Orbicularis Oculi (left) 15U Orbicularis Oculi (right) 30U Trapezius (left) 70U Trapezius (right) Assessment & Plan (06/04/2018 6:09 PM CDT): She has late adult onset, idiopathic craniocervical dystonia with blepharospasm, oromandibular and cervical dystonia. She had excellent benefits (for blepharospasm) from the last botulinum toxin injections. This benefit has now started wearing off. She would be an appropriate candidate for repeat injections. The potential risks (including but not limited to bruising, hematoma, neck weakness, eyelid drooping, dysphagia, infection and injection site pain etc.), benefits, alternatives to chemodenervation were discussed and a signed consent was obtained. She would need a higher dose for optimal benefits, our office will preauthorize this. Recommendations: Botox injected as detailed below. Botox administered: 147.5 U (amount wasted: 52.5 U) injected into the following muscles using a 1 ml dilution: 27.5U Orbicularis Oculi (left) 20U Orbicularis Oculi (right) 30U Trapezius (left) 70U Trapezius (right) Assessment & Plan (02/25/2018 12:10 PM TRANSVERSE ABDOMINAL MUSCLE SURGEON): She has late adult onset, idiopathic craniocervical dystonia with blepharospasm, oromandibular and cervical dystonia. She had excellent benefits from the last botulinum toxin injections. This benefit has now started wearing off. She would be an appropriate candidate for repeat injections. The potential risks (including but not limited to bruising, hematoma, neck weakness, eyelid drooping, dysphagia, infection and injection site pain etc.), benefits, alternatives to chemodenervation were discussed and a signed consent was obtained. She would need a higher dose for optimal benefits, our office will preauthorize this. Recommendations: Botox injected as detailed below. Please preauthorize 200 Units of Botox for the next visit. Botox administered: Anxiety 05/08/2016 Cervical dystonia 10/20/2014 Assessment & Plan (04/13/2024 9:23 AM TRANSVERSE ABDOMINAL MUSCLE SURGEON): She has late adult onset, idiopathic craniocervical dystonia with blepharospasm, oromandibular and cervical dystonia. She had good benefits from the last botulinum toxin injections. This benefits have now started wearing off and she would be an appropriate candidate for repeat injections. The potential risks (including but not limited to bruising, hematoma, neck weakness, eyelid drooping, weakness, dysphagia, infection and injection site pain etc.), benefits, alternatives to chemodenervation were discussed and a signed consent was obtained. Recommendations: Botox injected as detailed below. Botox administered: 372.5 U (amount wasted: 27.5 U) injected into the following muscles using a 1 ml dilution: 30U Levator Scapulae (left) 20U Splenius Capitis (left) 15U Sternocleidomastoid (left) 40U Levator Scapulae (right) 30U Splenius Capitis (right) 50U Sternocleidomastoid (right) 37.5U Orbicularis Oculi (left) 30U Orbicularis Oculi (right) 20U Trapezius (left) 100U Trapezius (right) Assessment & Plan (11/10/2019 1:55 PM CDT): As above. Assessment & Plan (08/10/2019 11:06 AM CDT): As above. Assessment & Plan (11/25/2018 10:51 AM CDT): As above. Assessment & Plan (09/02/2018 11:33 AM CDT): As above. Assessment & Plan (06/04/2018 6:10 PM CDT): As above. 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 Unspecified cataract 02/07/2014 Social History Tobacco Use Types Packs/Day Years Used Date Smoking Tobacco: Never Passive Smoke Exposure: Never Smokeless Tobacco: Never Tobacco Cessation:Counseling Given: No Comments Unknown Sex and Gender Information Value Date Recorded Sex Assigned at Not on file Legal Sex Female 2:50 AM TRANSVERSE ABDOMINAL MUSCLE SURGEON Gender Identity Not on file Sexual Orientation Not on file Last Filed Vital Signs Vital Sign Reading Time Taken Comments Blood Pressure 140/73 04/13/2024 8:46 AM TRANSVERSE ABDOMINAL MUSCLE SURGEON Pulse 90 04/13/2024 8:46 AM TRANSVERSE ABDOMINAL MUSCLE SURGEON Temperature 36.7 C (98.1 F) 01/12/2024 4:00 PM TRANSVERSE ABDOMINAL MUSCLE SURGEON Respiratory Rate 24 01/12/2024 4:00 PM TRANSVERSE ABDOMINAL MUSCLE SURGEON Oxygen Saturation 99% 01/12/2024 4:00 PM TRANSVERSE ABDOMINAL MUSCLE SURGEON Inhaled Oxygen Concentration - - Weight 88.5 kg (195 lb) 04/13/2024 8:46 AM TRANSVERSE ABDOMINAL MUSCLE SURGEON Height 160 cm (5' 3) 04/13/2024 8:46 AM TRANSVERSE ABDOMINAL MUSCLE SURGEON Body Mass Index 34.54 04/13/2024 8:46 AM TRANSVERSE ABDOMINAL MUSCLE SURGEON Plan of Treatment Not on file Insurance [facility] [id number] [facility] [id number] Care Teams Recycling Director Relationship Specialty Start Date End Date Seema Waters MD PCP - General 08/14/16
--- OUTSIDE RECORDS SUMMARY | 2024-07-20 10:38 | XMS_ITS | Clinical Summary ---
Author Organization [facility] Address [address] [place] [address] Phone Care Team Providers Care Pierogi Maker Name Role Phone Seema Waters MD Primary Care Provider [phone] Allergies No known active allergies Medications ibuprofen [...] Pt takes 2000 units daily Active white petrolatum-lode miner blasting al oil (white petrolatum-lode miner blasting al oiL) ointment 10/19/2014 Ac [...] 08/20/2017 Assessment & Plan (01/06/2024 11:49 AM SHANK CUTTER): She has late adult onset, idiopathic craniocervical [...] (right) Assessment & Plan (2023 10:48 AM SHANK CUTTER): She has late adult onset, idiopathic craniocervical [...] (right) Assessment & Plan (12/31/2022 10:14 AM SHANK CUTTER): She has late adult onset, idiopathic craniocervical [...] (right) Assessment & Plan (04/04/2022 8:06 PM SHANK CUTTER): She has late adult onset, idiopathic craniocervical [...] (right) Assessment & Plan (01/01/2022 11:06 AM SHANK CUTTER): She has late adult onset, idiopathic craniocervical [...] (right) Assessment & Plan (04/06/2021 7:32 AM SHANK CUTTER): She has late adult onset, idiopathic craniocervical [...] (right) Assessment & Plan (12/26/2020 10:25 AM SHANK CUTTER): She has late adult onset, idiopathic craniocervical [...] (right) Assessment & Plan (02/08/2020 3:22 PM SHANK CUTTER): She has late adult onset, idiopathic craniocervical [...] muscles using a 1 ml dilution: 5U Motor Block Mechanic Supercilii (left) 22.5U Orbicularis Oculi (left) 20U [...] (right) Assessment & Plan (03/04/2019 12:27 PM SHANK CUTTER): She has late adult onset, idiopathic craniocervical [...] (right) Assessment & Plan (02/25/2018 12:10 PM SHANK CUTTER): She has late adult onset, idiopathic craniocervical [...] 10/20/2014 Assessment & Plan (04/13/2024 9:23 AM SHANK CUTTER): She has late adult onset, idiopathic craniocervical [...] 02/07/2014 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 Unspecified cataract 02/07/2014 Family History Medical History Relation Name Comments Febrile seizures Father's Brother Relation Name Status Comments Father's Brother Social History Tobacco Use Types Packs/Day Years Used Date Smoking Tobacco: Never Passive Smoke Exposure: Never Smokeless Tobacco: Never Tobacco Cessation:Counseling Given: No Comments Unknown Sex and Gender Information Value Date Recorded Sex Assigned at Not on file Legal Sex Female 2:50 AM SHANK CUTTER Gender Identity Not on file Sexual Orientation Not on file Obstetrics History Last Filed Vital Signs Vital Sign Reading Time Taken Comments Blood Pressure 140/73 04/13/2024 8:46 AM SHANK CUTTER Pulse 90 04/13/2024 8:46 AM SHANK CUTTER Temperature 36.7 C (98.1 F) 01/12/2024 4:00 PM SHANK CUTTER Respiratory Rate 24 01/12/2024 4:00 PM SHANK CUTTER Oxygen Saturation 99% 01/12/2024 4:00 PM SHANK CUTTER Inhaled Oxygen Concentration - - Weight 88.5 kg (195 lb) 04/13/2024 8:46 AM SHANK CUTTER Height 160 cm (5' 3) 04/13/2024 8:46 AM SHANK CUTTER Body Mass Index 34.54 04/13/2024 8:46 AM SHANK CUTTER Plan of Treatment Health Maintenance Due Date Last Done Comments Depression Screening 1946 Fall Risk Assessment 1945 Hepatitis C Screening 1945 Osteoporosis Screening-Bone Density Scan 1945 DTaP/Tdap/Td Vaccine (1 - Tdap) 1957 Hepatitis B Screening 1964 Pneumococcal vaccine 65+ (1 of 1 - PCV) 1996 Zoster Vaccine (1 of 2) 1996 Well Visit 65+ 2011 Influenza Vaccine (Season Ended) 2024 11/18/19 Insurance [facility] [id number] [facility] [id number] Care Teams Pierogi Maker Relationship Specialty Start Date End Date Seema Waters MD PCP - General 08/14/16
[2024-07-20 16:35] LABS: Iron 58 ug/dL (37-170)
[2024-07-20 16:47] LABS: Percent Iron Saturation 14 % (20-50)
[2024-07-20 16:50] LABS: Alanine Aminotransferase 17 U/L (6-35); Albumin Level 4.1 g/dL (3.5-5.1); Alkaline Phosphatase 70 U/L (38-126); Anion Gap 8 mmol/L (4-12); Aspartate Amino Transferase 37 U/L (14-36); Bilirubin,Total 0.5 mg/dL (0.2-1.3); Blood Urea Nitrogen 19 mg/dL (7-17); Calcium 9.3 mg/dL (8.4-10.2); Carbon Dioxide 27 mmol/L (22-30); Chloride 107 mmol/L (98-107); Cholesterol 217 mg/dL (0-200); Estimated Glomerular Filt Rate 58; Glucose 76 mg/dL (65-110); HDL Direct 68 mg/dL; Magnesium 2.3 mg/dL (1.6-2.3); Phosphorus 3.8 mg/dL (2.5-4.5); Potassium 4.3 mmol/L (3.4-5.0); Sodium 142 mmol/L (137-145); Triglycerides 113 mg/dL (<150)
[2024-07-20 16:51] LABS: Hemoglobin A1C 5.5 % (<5.7); Vitamin D 25 Hydroxy 40.8 ng/mL
[2024-07-20 17:01] LABS: LDL Cholesterol Direct 104 mg/dL
[2024-07-20 17:10] LABS: Parathyroid Intact 31.9 pg/mL (14.5-75.2)
[2024-07-20 17:30] LABS: Basophils Absolute Auto 0.1 K/mm3 (0.0-0.1); Basophils Percent Auto 1.3 % (0.2-1.2); Eosinophils Absolute Auto 0.4 K/mm3 (0-0.3); Eosinophils Percent Auto 6.4 % (0-4.4); Hematocrit 43.7 % (37.0-47.0); Immature Granulocyte Absolute 0.01 K/mm3 (0.00-0.031); Immature Granulocyte Percent A 0.2 % (0-0.5); Lymphocytes Absolute Auto 1.34 K/mm3 (0.9-3.2); Lymphocytes Percent Auto 24.5 % (18.3-44.2); Mean Corpuscular HGB Conc 29.7 g/dl (32-36); Mean Corpuscular Hemoglobin 27.3 pg (26-34); Mean Corpuscular Volume 91.6 fl (80-100); Mean Platelet Volume 11.2 fl (7.4-10.4); Monocytes Absolute Auto 0.6 K/mm3 (0.1-0.6); Monocytes Percent Auto 10.1 % (2.6-8.5); Neutrophils Absolute Auto 3.2 K/mm3 (1.3-6.7); Neutrophils Percent Auto 57.5 % (45.5-73.1); Platelet Count Result 246 k/mm3 (150-375); Red Blood Count 4.77 M/mm3 (4.2-5.4); Red Cell Distribution Width 17.2 % (11.5-14.5); White Blood Count 5.5 K/mm3 (4.5-10.0)
[2024-07-20 21:19] LABS: Hypochromasia 1+; Ovalocytes 1+; Platelet Estimate Adequate (Adequate); Schistocytes None Seen
[2024-07-21 00:55] LABS: Free T4 Free Thyroxine Reflex 1.05 ng/dL (0.78-2.19)
[2024-07-21 01:42] LABS: Total Triiodothyronine (T3) 1.25 NG/ML (0.82-1.58)
== END 2024-07-20 09:52 | disposition home or self-care (01) ==
PROVIDERS: PCP Family Medicine; Visit Provider Family Medicine
DX: E78.2 Mixed hyperlipidemia (principal); E55.9 Vitamin D deficiency, unspecified; D64.9 Anemia, unspecified; I10 Essential (primary) hypertension; Z13.1 Encounter for screening for diabetes mellitus; E03.9 Hypothyroidism, unspecified
CPT/HCPCS: 36415; 80053; 80061; 82306; 82728; 83036; 83540; 83550; 83735; 83970; 84100; 84439; 84443; 84480; 85025